=== PATIENT | female | born 1960 | race Caucasian/White ===

== ENCOUNTER → 2017-01-31 | Outpatient (CLI) | payer OTHER ==
[~2017-01-31] MED LIST: BUSP15TA PO; CILO100T PO; DIPH25CA PO; GABA300C5 PO; HYDR50CA PO; IBUP400T20 PO; KETO60IN6 IM; LIPI10TA PO; LIPI20TA PO; LISI-515 PO; LITH300C2 PO; METH125I2 IM; PERM5CRE TOPICAL; ROBA750T PO; SERT-129 PO; TRAZ100T4 PO; TRAZ100T6 PO
[2017-01-31 11:48] LABS: ALKALINE PHOSPHATASE 118 U/L (45-117); ALT (GPT) 33 U/L (10-53); ANION GAP 6 MEQ/L (5-15); AST (GOT) 29 U/L (15-37); BICARBONATE 27.6 MEQ/L (21.0-32.0); BLOOD UREA NITROGEN 13 MG/DL (7-18); CHLORIDE 107 MEQ/L (98-107); GLOMERULAR FILTRATION RATE 70 ML/MIN (>89); GLUCOSE,FASTING 97 MG/DL (74-99); HDL CHOLESTEROL 61.1 MG/DL (40.0-60.0); LDL CHOLESTEROL 124 MG/DL (0-99); POTASSIUM 4.9 MEQ/L (3.5-5.1); SODIUM (NA) 141 MEQ/L (136-145); TOTAL BILIRUBIN ADULT 0.5 MG/DL (0.2-1.0)
== END ==
LOC: CLAB 10:54
PROVIDERS: ATTEND Physician Assistant Medical
DX: E78.2 Mixed hyperlipidemia (principal)
CPT/HCPCS: 36415; 80053; 80061

== ENCOUNTER → 2017-03-22 | Outpatient (CLI) | payer OTHER ==
[~2017-03-22] MED LIST changes: -IBUP400T20 PO; -LIPI10TA PO; -LITH300C2 PO
[2017-03-22 12:04] LABS: AUTOMATED NEUTROPHIL # 4.1 TH/MM3 (1.8-7.7); BASOPHIL # 0.1 TH/MM3 (0-0.2); EOSINOPHIL # 0.1 TH/MM3 (0-0.4); EOSINOPHIL % 2.1 % (0.0-4.0); HEMATOCRIT 42.2 % (35.0-46.0); HEMO FLAGS DIFF FINAL; LYMPH % 23.1 % (9.0-44.0); LYMPHOCYTE # 1.4 TH/MM3 (1.0-4.8); MEAN CELL VOLUME 89.2 FL (80.0-100.0); MEAN CORPUSCULAR HEMOGLOBIN 30.4 PG (27.0-34.0); MEAN CORPUSCULAR HGB CONC 34.1 % (32.0-36.0); MONO % 8.3 % (0.0-8.0); NEUT % 65.5 % (16.0-70.0); PLATELET COUNT 168 TH/MM3 (150-450); RED BLOOD COUNT 4.73 MIL/MM3 (4.00-5.30); RED CELL DISTRIBUTION WIDTH 14.2 % (11.6-17.2); WHITE BLOOD COUNT 6.2 TH/MM3 (4.0-11.0)
== END ==
LOC: CLAB 11:39
PROVIDERS: ATTEND Family Medicine
DX: B18.2 Chronic viral hepatitis C (principal)
CPT/HCPCS: 36415; 85025

== ENCOUNTER → 2017-04-26 | Outpatient (CLI) | payer OTHER ==
[~2017-04-26] MED LIST changes: -GABA300C5 PO; -HYDR50CA PO; -KETO60IN6 IM; -METH125I2 IM
[2017-04-26 14:34] LABS: BICARBONATE 27.7 MEQ/L (21.0-32.0); POTASSIUM 4.8 MEQ/L (3.5-5.1)
== END ==
LOC: CLAB 13:32
PROVIDERS: ATTEND Nurse Practitioner Family
DX: R68.89 Other general symptoms and signs (principal)
CPT/HCPCS: 36415; 80069

== ENCOUNTER → 2017-05-06 | Outpatient (CLI) | payer OTHER | LOC: HRAD 12:05 | PROVIDERS: ATTEND Family Medicine | DX: R68.89 Other general symptoms and signs (principal) ==

== ENCOUNTER → 2017-05-08 | Outpatient (CLI) | payer OTHER ==
[~2017-05-08] MED LIST changes: +IOHEXOL 350 MG/ML 10 ML VIAL (for RAD DIAG) IV ONE
--- NOTE | 2017-05-08 17:09 | RADRPT ---
EXAM DATE/TIME: 05/08/2017 15:40 [facility] COMPARISON: No previous studies available for comparison. INDICATIONS : Evaluate for abnormal ankle brachial index. IV CONTRAST: 69 cc Omnipaque 350 (iohexol) IV RADIATION DOSE: 12.91 CTDIvol (mGy) MEDICAL HISTORY : Hypertension. Hypercholesterolemia. SURGICAL HISTORY : Right femur fracture repair, ankle repair. ENCOUNTER: Initial ACUITY: 1 week PAIN SCALE: 4/10 LOCATION: Bilateral ankle regions. TECHNIQUE: Volumetric scanning was performed using a multi-row detector CT scanner. The data was post processed with a variety of visualization algorithms including full volume maximum intensity projection, multi -planar sliding thin slab reformation, curved planar reformation, and surface rendering techniques. Using automated exposure control and adjustment of the mA and/or kV according to patient size, radiat ion dose was kept as low as reasonably achievable to obtain optimal diagnostic quality images. FINDINGS: Abdominal aorta: The celiac and SMA origins are adequate in caliber. There are single renal arteries bilaterally. The renal arteries are widely patent. The infrarenal aorta is adequate in caliber. The SONNY is patent. Pelvis: The common iliac, internal iliac and external iliac circulation is diseased but widely patent through out its course. Right leg: The common femoral and profunda femoral are patent. The superficial femoral is occluded at its origin . There is eventual reconstitution of the above-knee popliteal. Distally, all 3 trifurcation vessels are patent. Left leg: The left common femoral and profunda femoral are patent. The superficial femoral is occluded at its o rigin. There is eventual reconstitution of the distal superficial femoral below the adductor hiatus. The popliteal is widely patent. All 3 trifurcation vessels are patent down into the foot. CT source data: The solid organs of the abdomen are grossly intact. There is no retroperitoneal adenopathy. No free a ir or free fluid is present. The visualized portion of lung bases clear. CONCLUSION: 1. Adequate inflow down to the level of groin bilaterally. 2. 3. Right le. Complete occlusion of the superficial femoral with reconstitution of the popliteal. Distally, the trifurcation vessels are patent. 5. 6. Left le. Complete occlusion of the superficial femoral proximally with reconstitution of the superficial fe moral below the adductor hiatus. Distally, the trifurcation vessels are patent. Aki Causey MD on May 08, 2017 at 17:03 Board Certified Radiologist. This report was verified electronically.
== END ==
LOC: HRAD 13:17
PROVIDERS: ATTEND Family Medicine
DX: R68.89 Other general symptoms and signs (principal)
CPT/HCPCS: 75635; Q9967

== ENCOUNTER 2017-05-20 13:17 | Emergency (ER) | payer OTHER ==
[~2017-05-20] VITALS: Ht 165.1 cm; Wt 72.0 kg
[~2017-05-20 13:17] MED LIST changes: -DIPH25CA PO; -IOHEXOL 350 MG/ML 10 ML VIAL (for RAD DIAG) IV ONE; -PERM5CRE TOPICAL; -TRAZ100T4 PO
[2017-05-20 13:18] VITALS: BP 229/105; PULSE 88; RESP 20; TEMP 98.3; O2SAT 97
--- NOTE | 2017-05-20 14:28 | PD ---
Physical Exam Time Seen by Provider: 14:27 Narrative 56yo F wants to be checked for scabies. C/o generalized itchy rash x 2 days. Moi fever, vomiting. Patient seen in triage. Awaiting bed placement. VS reviewed. Data Data Last Documented VS Vital Signs Date Time Temp Pulse Resp B/P Pulse Ox O2 Delivery O2 Flow Rate FiO2 05/20/17 13:18 98.3 88 20 229/105 97 Room Air MDM Supervised Visit with JAH: Rose George May 20, 2017 14:28
[2017-05-20 15:58] VITALS: BP 181/106; PULSE 66; RESP 17; TEMP 98.1; O2SAT 100
[2017-05-20] MEDS ORDERED: PERM5CRE TOPICAL (16:14)
--- NOTE | 2017-05-20 16:16 | PD ---
HPI Chief Complaint: Skin Problem Time Seen by Provider: 16:16 Travel History International Travel<30 days: No Contact w/Intl Traveler<30days: No Traveled to known affect area: No History of Present Illness HPI 56-year-old female presents the emergency Department with generalized itchy rash since rescuing a kitten 3 days ago. Past away but the patient has now has worsening generalized itchy rash to the trunk which is spreading and "driving her crazy". Patient denies fever, chills, or other symptoms. Patient has no pain. She is allergic to morphine. PFSH Past Medical History Hx Anticoagulant Therapy: No Autoimmune Disease: No Blood Disorders: No Bipolar Disorder: Yes Anxiety: Yes Depression: Yes Heart Rhythm Problems: No Cancer: No Cardiac Catheterization: No Cardiovascular Problems: Yes (HTN) High Cholesterol: No Chemotherapy: No Chest Pain: No Congestive Heart Failure: No Cerebrovascular Accident: No Diabetes: No Diminished Hearing: No Genitourinary: No Hepatitis: Yes (hep c) Hypertension: Yes Musculoskeletal: Yes Psychiatric: Yes Reproductive: No Respiratory: No Myocardial Infarction: No Menopausal: Yes : 2 Para: 2 Miscarriage: 0 : 0 Ovarian Cysts: Yes (LEFT CYST REMMOVED) Past Surgical History Abdominal Surgery: No Appendectomy: Yes Section: Yes Coronary Artery Bypass Graft: No Gynecologic Surgery: Yes (C SECTION) Hysterectomy: No Pacemaker: No Tonsillectomy: Yes Other Surgery: Yes (mult. skin grafts.) Social History Alcohol Use: No Tobacco Use: Yes Substance Use: No Allergies-Medications (Allergen,Severity, Reaction): Coded Allergies: Morphine (Verified Allergy, Severe, Respiratory Failure, 05/20/17) Reported Meds & Prescriptions Reported Meds & Active Scripts Active Diphenhydramine (Diphenhydramine HCl) 25 Mg Cap 25 Mg PO Q6H PRN Permethrin Topical 5% (Permethrin) 5% Cream 1 Applic TOPICAL ONCE Cilostazol 100 Mg Tab 100 Mg PO BID Robaxin (Methocarbamol) 750 Mg Tab 750 Mg PO QID Lipitor (Atorvastatin Calcium) 20 Mg Tab 20 Mg PO HS Lisinopril 20 Mg Tab 20 Mg PO DAILY Reported Trazodone (Trazodone HCl) 100 Mg Tablet 100 Mg PO BID Buspirone (Buspirone HCl) 15 Mg Tab 15 Mg PO TID Sertraline (Sertraline HCl) 100 Mg Tab 100 Mg PO DAILY Review of Systems Except as stated in HPI: all other systems reviewed are Neg General / Constitutional: No: Fever, Chills Eyes: No: Visual changes HENT: No: Headaches Cardiovascular: No: Chest Pain or Discomfort Respiratory: No: Shortness of Breath Gastrointestinal: No: Abdominal Pain Genitourinary: No: Dysuria Musculoskeletal: No: Pain Skin: Positive Rash, Positive Itching Neurologic: No: Weakness Psychiatric: No: Depression Endocrine: No: Polydipsia Hematologic/Lymphatic: No: Easy Bruising Physical Exam Narrative GENERAL: Patient appears in mild distress. SKIN: Warm and dry. Patient has generalized erythematous rash consistent with scabies to the trunk and upper extremities EYES: Pupils equal and round. No scleral icterus. No injection or drainage. ENT: No nasal bleeding or discharge. Mucous membranes pink and moist. Pharynx is clear. Airway is patent. NECK: Trachea midline. Supple and nontender. CARDIOVASCULAR: Regular rate and rhythm. RESPIRATORY: No accessory muscle use. Clear to auscultation. Breath sounds equal bilaterally. GASTROINTESTINAL: Abdomen soft, non-tender, nondistended. Hepatic and splenic margins not palpable. MUSCULOSKELETAL: Extremities without clubbing, cyanosis, or edema. No obvious deformities. NEUROLOGICAL: Awake and alert. No obvious cranial nerve deficits. Motor grossly within normal limits. Five out of 5 muscle strength in the arms and legs. Normal speech. PSYCHIATRIC: Appropriate mood and affect; insight and judgment normal. Data Data Last Documented VS Vital Signs Date Time Temp Pulse Resp B/P Pulse Ox O2 Delivery O2 Flow Rate FiO2 05/20/17 15:58 98.1 66 17 181/106 100 Room Air Orders Hydroxyzine Hcl (Atarax) (05/20/17 16:30) [facility] Medical Decision Making Medical Screen Exam Complete: Yes Emergency Medical Condition: Yes Differential Diagnosis Rash. Lice. Scabies. Narrative Course Patient is stable at time of exam. Patient is given Atarax 25 mg by mouth now. Patient will be treated with permethrin lotion 5% as directed. 1 refill given. Instructions on cleaning the sheets and urinalysis are given as well. Patient is to follow up if symptoms persist or worsen as discussed. Diagnosis Primary Impression: Scabies infestation Patient Instructions: General Instructions Additional Instructions: Patient is given Atarax 25 mg by mouth now. Patient will be treated with permethrin lotion 5% as directed. 1 refill given. Instructions on cleaning the sheets and urinalysis are given as well. Patient is to follow up if symptoms persist or worsen as discussed. Med/Other Pt SpecificInfo: Prescription(s) given Scripts Diphenhydramine 25 Mg Cap25 Mg PO Q6H PRN (ALLERGIES) #30 CAP Ref 0 Prov:Larisa Hamilton MD 05/20/17 Permethrin Topical 5% 5% Cream1 Applic TOPICAL ONCE #1 TUBE Ref 1 Prov:Larisa Hamilton MD 05/20/17 Disposition: 01 DISCHARGE HOME Condition: Stable Alfred Lezama May 20, 2017 16:16
[2017-05-20] MEDS ORDERED: DIPH25CA PO (16:20)
[2017-05-20] MEDS ORDERED: hydrOXYzine HCL 25 MG TAB PO ONE (16:30)
== END 2017-05-20 16:27 | disposition home or self-care (01) ==
LOC: NEPD 13:17
DX: B86 Scabies (principal); I10 Essential (primary) hypertension; F31.9 Bipolar disorder, unspecified; K75.9 Inflammatory liver disease, unspecified; B19.20 Unspecified viral hepatitis C without hepatic coma; F41.9 Anxiety disorder, unspecified; Z72.0 Tobacco use; Z79.899 Other long term (current) drug therapy; Z88.5 Allergy status to narcotic agent
CPT/HCPCS: 99284

== ENCOUNTER 2017-08-10 18:16 | Observation (INO) | payer OTHER ==
[~2017-08-10 18:16] MED LIST changes: +DIPH25CA PO
[2017-08-10 18:19] VITALS: BP_DIAS 74; PULSE 105; RESP 18; TEMP 97.9; O2SAT 97
[2017-08-10] MEDS ORDERED: SODIUM CHLOR 0.9% 1000 ML INJ 1,000 ML IV SCH ×2 (18:28→22:38)
[2017-08-10] MEDS ORDERED: HYDROmorphone HCL PF 1 MG/ML VIAL IVS ONE (18:30)
[2017-08-10] MEDS ORDERED: SODIUM CHLORIDE 0.9% FLUSH 10 ML FLUSH IV FLUSH PRN ×2 (18:30→22:45)
[2017-08-10] MEDS ORDERED: ONDANSETRON HCL 4 MG/2 ML VIAL IVP ONE (18:30)
--- NOTE | 2017-08-10 18:33 | PD ---
HPI Chief Complaint: Pain: Acute or Chronic Time Seen by Provider: 18:32 Travel History International Travel<30 days: No Contact w/Intl Traveler<30days: No Traveled to known affect area: No History of Present Illness HPI 57-year-old female presents to the emergency department for evaluation of left lower abdominal/left groin pain. She states the pain is worse with movement of her left leg and she feels numbness in her left leg as well. Patient reports history of PVD, hyperlipidemia, anxiety, hypertension, depression. Patient states she has not had this pain before. The pain started approximately 45 minutes prior to arrival. Patient does report history of recent the past, but states it does not feel similar. She also reports history of ovarian cyst. She states she may run a fever earlier today. No chest pain. No nausea, vomiting, diarrhea. No blood in her stool. She reports history of section. She denies any chance of . PFSH Past Medical History Hx Anticoagulant Therapy: No Autoimmune Disease: No Blood Disorders: No Bipolar Disorder: Yes Anxiety: Yes Depression: Yes Heart Rhythm Problems: No Cancer: No Cardiac Catheterization: No Cardiovascular Problems: Yes (HTN) High Cholesterol: No Chemotherapy: No Chest Pain: No Congestive Heart Failure: No Cerebrovascular Accident: No Diabetes: No Diminished Hearing: No Genitourinary: No Headaches: Yes Hepatitis: Yes (hep c) Hypertension: Yes Musculoskeletal: Yes Psychiatric: Yes Reproductive: No Respiratory: No Myocardial Infarction: No Menopausal: Yes : 2 Para: 2 Miscarriage: 0 : 0 Ovarian Cysts: Yes (LEFT CYST REMMOVED) Past Surgical History Abdominal Surgery: No Appendectomy: Yes Section: Yes Coronary Artery Bypass Graft: No Gynecologic Surgery: Yes (C SECTION) Hysterectomy: No Pacemaker: No Tonsillectomy: Yes Other Surgery: Yes (mult. skin grafts.) Social History Alcohol Use: No Tobacco Use: Yes Substance Use: No Allergies-Medications (Allergen,Severity, Reaction): Coded Allergies: morphine (Unverified Allergy, Severe, Respiratory Failure, 07/09/17) Reported Meds & Prescriptions Reported Meds & Active Scripts Active Diphenhydramine (Diphenhydramine HCl) 25 Mg Cap 25 Mg PO Q6H PRN Cilostazol 100 Mg Tab 100 Mg PO BID Robaxin (Methocarbamol) 750 Mg Tab 750 Mg PO QID Lipitor (Atorvastatin Calcium) 20 Mg Tab 20 Mg PO HS Lisinopril 20 Mg Tab 20 Mg PO DAILY Reported Vistaril (Hydroxyzine Pamoate) 25 Mg Cap 25 Mg PO QID PRN Sertraline (Sertraline HCl) 100 Mg Tab 200 Mg PO DAILY Review of Systems Except as stated in HPI: all other systems reviewed are Neg Physical Exam Narrative GENERAL: Well-nourished, well-developed female patient, afebrile. SKIN: Focused skin assessment warm/dry. HEAD: Normocephalic. Atraumatic. EYES: No scleral icterus. No injection or drainage. NECK: Supple, trachea midline. No JVD or lymphadenopathy. CARDIOVASCULAR: Regular rate and rhythm without murmurs, gallops, or rubs. Bilateral pedal pulses 1+. RESPIRATORY: Breath sounds equal bilaterally. No accessory muscle use. Lungs sounds are clear to auscultation. GASTROINTESTINAL: Abdomen soft and nondistended. Patient has tenderness over left groin/left lower quadrant. Pain is better with the left leg flexed. MUSCULOSKELETAL: No cyanosis, or edema. BACK: Nontender without obvious deformity. No CVA tenderness. Data Data Last Documented VS Vital Signs Date Time Temp Pulse Resp B/P (MAP) Pulse Ox O2 Delivery O2 Flow Rate FiO2 08/10/17 22:00 79 22 176/88 (117) 95 08/10/17 18:19 97.9 Orders Orders Complete Blood Count With Diff (08/10/17 18:28) Comprehensive Metabolic Panel (08/10/17 18:28) Lipase (08/10/17 18:28) Prothrombin Time / Inr (Pt) (08/10/17 18:28) Act Partial Throm Time (Ptt) (08/10/17 18:28) Urinalysis - C+S If Indicated (08/10/17 18:28) Iv Access Insert/Monitor (08/10/17 18:28) Ecg Monitoring (08/10/17 18:28) Oximetry (08/10/17 18:28) Ondansetron Inj (Zofran Inj) (08/10/17 18:30) Sodium Chlor 0.9% 1000 Ml Inj (Ns 1000 M (08/10/17 18:28) Sodium Chloride 0.9% Flush (Ns Flush) (08/10/17 18:30) Hydromorphone Pf Inj (Dilaudid Pf Inj) (08/10/17 18:30) Us Pelvis Comp W Transvaginal (08/10/17 ) Ct Abd/Pel W/O Iv Contrast (08/10/17 ) Ketorolac Inj (Toradol Inj) (08/10/17 20:30) Cath For Specimen (08/10/17 20:19) Ct Abd/Pel W Iv Contrast(Rout) (08/10/17 ) Ct Lumb Spine W/O Contrast (08/10/17 ) Hydromorphone Pf Inj (Dilaudid Pf Inj) (08/10/17 21:15) Lactic Acid Sepsis Protocol (08/10/17 21:19) Iohexol 350 Inj (Omnipaque 350 Inj) (08/10/17 21:59) Admit Order (Ed Use Only) (08/10/17 22:32) Labs Laboratory Tests Test 08/10/17 18:40 08/10/17 20:20 08/10/17 21:45 White Blood Count 10.2 TH/MM3 Red Blood Count 4.45 MIL/MM3 Hemoglobin 13.4 GM/DL Hematocrit 39.6 % Mean Corpuscular Volume 89.0 FL Mean Corpuscular Hemoglobin 30.2 PG Mean Corpuscular Hemoglobin Concent 34.0 % Red Cell Distribution Width 13.2 % Platelet Count 201 TH/MM3 Mean Platelet Volume 9.5 FL Neutrophils (%) (Auto) 71.7 % Lymphocytes (%) (Auto) 21.5 % Monocytes (%) (Auto) 5.3 % Eosinophils (%) (Auto) 0.9 % Basophils (%) (Auto) 0.6 % Neutrophils # (Auto) 7.3 TH/MM3 Lymphocytes # (Auto) 2.2 TH/MM3 Monocytes # (Auto) 0.5 TH/MM3 Eosinophils # (Auto) 0.1 TH/MM3 Basophils # (Auto) 0.1 TH/MM3 CBC Comment DIFF FINAL Differential Comment Prothrombin Time 10.1 SEC Prothromb Time International Ratio 0.9 RATIO Activated Partial Thromboplast Time 24.1 SEC Blood Urea Nitrogen 12 MG/DL Creatinine 0.89 MG/DL Random Glucose 107 MG/DL Total Protein 7.5 GM/DL Albumin 3.8 GM/DL Calcium Level 9.3 MG/DL Alkaline Phosphatase 116 U/L Aspartate Amino Transf (AST/SGOT) 25 U/L Alanine Aminotransferase (ALT/SGPT) 29 U/L Total Bilirubin 0.4 MG/DL Sodium Level 140 MEQ/L Potassium Level 3.8 MEQ/L Chloride Level 107 MEQ/L Carbon Dioxide Level 23.0 MEQ/L Anion Gap 10 MEQ/L Estimat Glomerular Filtration Rate 66 ML/MIN Lipase 180 U/L Urine Color LIGHT-YELLOW Urine Turbidity CLEAR Urine pH 7.0 Urine Specific [place] 1.008 Urine Protein NEG mg/dL Urine Glucose (UA) NEG mg/dL Urine Ketones NEG mg/dL Urine Occult Blood NEG Urine Nitrite NEG Urine Bilirubin NEG Urine Urobilinogen LESS THAN 2.0 MG/DL Urine Leukocyte Esterase NEG Urine RBC LESS THAN 1 /hpf Urine WBC LESS THAN 1 /hpf Microscopic Urinalysis Comment CATH-CULT NOT IND Lactic Acid Level 0.8 mmol/L MDM Medical Decision Making Medical Screen Exam Complete: Yes Emergency Medical Condition: Yes Medical Record Reviewed: Yes Interpretation(s) Last Impressions Pelvis Ultrasound 08/10/17 0000 Signed Impressions: Service Date/Time: Thursday, August 10, 2017 18:37 - CONCLUSION: Limited study but without evidence of an acute abnormality. Musa Campbell MD Abdomen/Pelvis CT 08/10/17 0000 Signed Impressions: Service Date/Time: Thursday, August 10, 2017 19:38 - CONCLUSION: 1. No obstruction or acute inflammatory changes of the abdomen or pelvis. 2. Mild sigmoid colon diverticulosis without diverticulitis. 3. Atherosclerosis of the abdominal aorta. Musa Campbell MD CT abdomen/pelvis with IV contrast - CONCLUSION: No acute abnormality or interim change. Mild sigmoid colon diverticulosis without diverticulitis. CT lumbar spine - CONCLUSION: 1. Multilevel abnormalities as detailed above, mostly appearing chronic. Age- indeterminate left foraminal disc protrusions and/or extrusions are seen at L3/ L4 and L4/L5, probably impinging on the exiting left L3 and L4 nerve roots, respectively. There may also be impingement on the transiting left L5 nerve root at L4/L5. 2. Mild levoconvex curvature centered around L4. No fracture or subluxation of the lumbar spine. Differential Diagnosis Nephrolithiasis versus tubo-ovarian torsion versus UTI versus pyelonephritis versus diverticulitis versus ovarian cyst Narrative Course 57 year old female presents to the emergency department for evaluation of left lower quadrant/left groin pain that started suddenly approximate 45 minutes ago. She denies any heavy lifting. Patient does have history of PVD, but bilateral pedal pulses are palpable with no change in temperature. CBC, CMP, lipase, PTT, PT/INR, UA are ordered and pending. Pelvic ultrasound is ordered and pending. CT abdomen/pelvis without contrast is ordered and pending. Patient is given Dilaudid 0.5 mg IV, normal saline liter IV bolus, Zofran 4 mg IV. CBC shows no acute abnormality. CMP shows no acute abnormality. Lipase is 180. Coags show no acute abnormality. UA is negative. Pelvic ultrasound shows a limited study, but without evidence of an acute abnormality. CT abdomen /pelvis shows no obstruction or acute inflammatory changes of the abdomen or pelvis, mild sigmoid diverticulosis without diverticulitis, atherosclerosis of the abdominal aorta. Upon reexamination, patient still very uncomfortable. My attending physician, Dr. Shen, also examined patient. She recommends lactic acid, CT abdomen/pelvis with IV contrast and CT lumbar spine. Orders are placed. Patient is given Toradol 30 mg IV, Dilaudid 0.[address] abdomen/pelvis with IV contrast shows No acute abnormality or interim change. Mild sigmoid colon diverticulosis without diverticulitis. CT lumbar spine shows multilevel abnormalities as detailed above, mostly appearing chronic. Age-indeterminate left foraminal disc protrusions and/or extrusions are seen at L3/L4 and L4/L5, probably impinging on the exiting left L3 and L4 nerve roots, respectively. There may also be impingement on the transiting left L5 nerve root at L4/L5; Mild levoconvex curvature centered around L4. No fracture or subluxation of the lumbar spine. Lactic acid is 0.8. [facility] is paged for admission. Dr. Galo accepted admission. Diagnosis Primary Impression: Intractable abdominal pain Admitting Information Admitting Physician Requests: Marci Cline Aug 10, 2017 18:33
[2017-08-10] MEDS ORDERED: VIST25CA PO (18:52)
[2017-08-10 19:07] LABS: AUTOMATED NEUTROPHIL # 7.3 TH/MM3 (1.8-7.7); BASOPHIL # 0.1 TH/MM3 (0-0.2); BASOPHIL % 0.6 % (0.0-2.0); EOSINOPHIL # 0.1 TH/MM3 (0-0.4); EOSINOPHIL % 0.9 % (0.0-4.0); HEMATOCRIT 39.6 % (35.0-46.0); HEMO FLAGS DIFF FINAL; LYMPH % 21.5 % (9.0-44.0); LYMPHOCYTE # 2.2 TH/MM3 (1.0-4.8); MEAN CORPUSCULAR HEMOGLOBIN 30.2 PG (27.0-34.0); MONO % 5.3 % (0.0-8.0); NEUT % 71.7 % (16.0-70.0); PLATELET COUNT 201 TH/MM3 (150-450); RED BLOOD COUNT 4.45 MIL/MM3 (4.00-5.30); RED CELL DISTRIBUTION WIDTH 13.2 % (11.6-17.2); WHITE BLOOD COUNT 10.2 TH/MM3 (4.0-11.0)
[2017-08-10 19:15] LABS: ANION GAP 10 MEQ/L (5-15); APTT (PATIENT) 24.1 SEC (24.3-30.1); AST (GOT) 25 U/L (15-37); BLOOD UREA NITROGEN 12 MG/DL (7-18); CHLORIDE 107 MEQ/L (98-107); GLOMERULAR FILTRATION RATE 66 ML/MIN (>89); INTERNATIONAL NORMALIZED RATIO 0.9 RATIO; POTASSIUM 3.8 MEQ/L (3.5-5.1); PROTHROMBIN TIME - PATIENT 10.1 SEC (9.8-11.6); SODIUM (NA) 140 MEQ/L (136-145)
[2017-08-10 19:19] LABS: ALKALINE PHOSPHATASE 116 U/L (45-117); ALT (GPT) 29 U/L (10-53); TOTAL BILIRUBIN ADULT 0.4 MG/DL (0.2-1.0)
--- NOTE | 2017-08-10 19:19 | RADRPT ---
EXAM DATE/TIME: 08/10/2017 18:37 [facility] COMPARISON: No previous studies available for comparison. INDICATIONS : Pelvic pain. MEDICAL HISTORY : Gastroesophageal reflux disease. Hypertension. Ovarian cysts. Anxiety. Depression. Hepatitis C. SURGICAL HISTORY : Tonsillectomy. Appendectomy. section. Right leg reconstructive surgery. Multiple skin graft s. ENCOUNTER: Initial ACUITY: 1 day PAIN SCORE: 10/10 LOCATION: Bilateral pelvis MEASUREMENTS: TRANSABDOMINAL: UTERUS: 6.1 x 3.7 x 2.6 cm RIGHT OVARY: Non visualized LEFT OVARY: Non visualized FINDINGS: UTERUS: The myometrium has homogeneous echotexture without mass. RIGHT OVARY: Not well seen. No evidence of an adnexal mass. LEFT OVARY: Not well seen. No evidence of an adnexal mass. MISCELLANEOUS: No free fluid. CONCLUSION: Limited study but without evidence of an acute abnormality. Musa Campbell MD on August 10, 2017 at 19:16 Board Certified Radiologist. This report was verified electronically.
[2017-08-10 20:00] VITALS: BP 206/95; PULSE 76; RESP 20; O2SAT 95
--- NOTE | 2017-08-10 20:07 | RADRPT ---
EXAM DATE/TIME: 08/10/2017 19:38 [facility] COMPARISON: CTA RUNOFF W 3D RECON, May 08, 2017, 15:40. INDICATIONS : Left lower abdominal pain. ORAL CONTRAST: No oral contrast ingested. RADIATION DOSE: 9.96 CTDIvol (mGy) MEDICAL HISTORY : Cardiovascular disease. Gastroesophageal reflux disease. Hepatitis C.Hypertension SURGICAL HISTORY : Appendectomy. Right hip surgery. ENCOUNTER: Initial ACUITY: 1 day PAIN SCALE: 7/10 LOCATION: Left lower quadrant abdomen TECHNIQUE: Volumetric scanning of the abdomen and pelvis was performed. Using automated exposure control and ad justment of the mA and/or kV according to patient size, radiation dose was kept as low as reasonably achievable to obtain optimal diagnostic quality images. DICOM format image data is available electro nically for review and comparison. FINDINGS: LOWER LUNGS: Trace scarring left lung base and unchanged benign pleural calcification of the right lung base. LIVER: Homogeneous density without lesion. There is no dilation of the biliary tree. No calcified gallston es. SPLEEN: Normal size without lesion. PANCREAS: Within normal limits. KIDNEYS: 2 nonobstructing stone right upper pole. Otherwise normal noncontrast appearance of both kidneys. ADRENAL GLANDS: Within normal limits. VASCULAR: There is atherosclerosis of the abdominal aorta and iliac arteries. No aneurysm. BOWEL/MESENTERY: Mild diverticulosis of the sigmoid colon but without perceptible acute inflammatory changes. No obstr uction. No free air or free fluid. ABDOMINAL WALL: Within normal limits. RETROPERITONEUM: There is no lymphadenopathy. BLADDER: No wall thickening or mass. REPRODUCTIVE: Within normal limits. INGUINAL: There is no lymphadenopathy or hernia. MUSCULOSKELETAL: No acute bony abnormality demonstrated. CONCLUSION: 1. No obstruction or acute inflammatory changes of the abdomen or pelvis. 2. Mild sigmoid colon diverticulosis without diverticulitis. 3. Atherosclerosis of the abdominal aorta. Musa Campbell MD on August 10, 2017 at 20:03 Board Certified Radiologist. This report was verified electronically.
[2017-08-10] MEDS ORDERED: KETOROLAC TROMETHAMINE 30 MG/ML (IVP) VIAL IV PUSH ONE (20:30)
[2017-08-10 21:00] VITALS: BP 169/92; PULSE 73; RESP 20; O2SAT 96
[2017-08-10] MEDS ORDERED: HYDROmorphone HCL PF 1 MG/ML VIAL IV PUSH ONE (21:15)
[2017-08-10 21:16] LABS: BLOOD, URINE NEG (NEG); GLUCOSE,URINE NEG (NEG); KETONE, URINE NEG (NEG); NITRITE,URINE NEG (NEG); URINE COLOR LIGHT-YELLOW (YELLW/STRAW)
[2017-08-10 21:17] LABS: COMMENT (UR) CATH-CULT NOT IND; CULTURE IF INDICATED CATH CULTURE NOT IND
[2017-08-10] MEDS ORDERED: IOHEXOL 350 MG/ML 10 ML VIAL (for RAD DIAG) IVCONTRAST ONE (21:59)
[2017-08-10 22:00] VITALS: BP 176/88; PULSE 79; RESP 22; O2SAT 95
--- NOTE | 2017-08-10 22:08 | RADRPT ---
EXAM DATE/TIME: 08/10/2017 19:39 [facility] COMPARISON: CT LUMBAR SPINE W/O CONTRAST W 3D RECON, November 12, 2012, 19:22. INDICATIONS : Lower back pain. RADIATION DOSE: CTDIvol (mGy) ; Reconstructed from previous dataset, no dose MEDICAL HISTORY : Hepatitis C. Hypertension. Gastroesophageal reflux disease. SURGICAL HISTORY : Appendectomy. section. ENCOUNTER: Initial ACUITY: 1 day PAIN SCALE: 7/10 LOCATION: Bilateral lower back TECHNIQUE: Volumetric scanning of the lumbar spine was performed. Multiplanar reconstructions in the sagittal, coronal and oblique axial planes were performed. Using automated exposure control and adjustment of the mA and/or kV according to patient size, radiation dose was kept as low as reasonably achievable t o obtain optimal diagnostic quality images. DICOM format image data is available electronically for review and comparison. FINDINGS: VERTEBRAE: Normal vertebral body height. ALIGNMENT: No evidence of subluxation. T12-L1: Mild left lateral disc osteophyte complex formation. There is mild bilateral facet osteoarthritis. No significant foraminal or spinal stenosis. L1-L2: Disc height within normal limits. There is [id number] bilateral facet osteoarthritis. No forami nal or spinal stenosis. L2-L3: There is slight bulging of the disc annulus and mild to moderate bilateral facet osteoarthritis. No f oraminal or spinal stenosis. L3-L4: The disc has mild loss of height. There is a small, broad/diffuse disc protrusion and moderate bilate ral facet osteoarthritis. A superimposed extruded disc fragment is seen in the left foramen, series 3 07 image 57. There is mild spinal stenosis and mild right, moderate or severe left foraminal stenosis . L4-L5: The disc as mild loss of height. A small moderate, broad/diffuse and partly calcified disc protrusion is present and there is moderate bilateral facet osteoarthritis with thickening of the ligamentum fl avum. I believe there is a superimposed more focal disc protrusion in the left foramen. There is left lateral recess encroachment and mild right, moderate left foraminal stenosis. L5-S1: Disc height within normal limits. There is mild, diffuse bulging of the disc annulus and mild to mode rate right foraminal stenosis. Apparent previous right hemilaminotomy. No significant foraminal or sp inal stenosis demonstrated at this level. CONCLUSION: 1. Multilevel abnormalities as detailed above, mostly appearing chronic. Age-indeterminate left molly inal disc protrusions and/or extrusions are seen at L3/L4 and L4/L5, probably impinging on the exitin g left L3 and L4 nerve roots, respectively. There may also be impingement on the transiting left L5 n erve root at L4/L5. 2. Mild levoconvex curvature centered around L4. No fracture or subluxation of the lumbar spine. Musa Campbell MD on August 10, 2017 at 21:58 Board Certified Radiologist. This report was verified electronically.
--- NOTE | 2017-08-10 22:11 | RADRPT ---
EXAM DATE/TIME: 08/10/2017 21:55 [facility] COMPARISON: CT ABDOMEN & PELVIS W/O CONTRAST, August 10, 2017, 19:38. INDICATIONS : Left lower abdominal pain. IV CONTRAST: 95 cc Omnipaque 350 (iohexol) IV ORAL CONTRAST: No oral contrast ingested. RADIATION DOSE: 8.67 CTDIvol (mGy) MEDICAL HISTORY : Gastroesophageal reflux disease. Hepatitis C. Hypertension. SURGICAL HISTORY : section. Appendectomy. ENCOUNTER: Initial ACUITY: 1 day PAIN SCALE: 7/10 LOCATION: Left lower quadrant TECHNIQUE: Volumetric scanning of the abdomen and pelvis was performed. Using automated exposure control and ad justment of the mA and/or kV according to patient size, radiation dose was kept as low as reasonably achievable to obtain optimal diagnostic quality images. DICOM format image data is available electro nically for review and comparison. FINDINGS: LOWER LUNGS: Trace scarring left lung base and unchanged benign pleural calcification of the right lung base. LIVER: Homogeneous density without lesion. There is no dilation of the biliary tree. No calcified gallston es. SPLEEN: Normal size without lesion. PANCREAS: Within normal limits. KIDNEYS: 2 nonobstructing stone right upper pole. Otherwise normal noncontrast appearance of both kidneys. ADRENAL GLANDS: Within normal limits. VASCULAR: There is atherosclerosis of the abdominal aorta and iliac arteries. No aneurysm. BOWEL/MESENTERY: Mild diverticulosis of the sigmoid colon but without perceptible acute inflammatory changes. No obstr uction. No free air or free fluid. ABDOMINAL WALL: Within normal limits. RETROPERITONEUM: There is no lymphadenopathy. BLADDER: No wall thickening or mass. REPRODUCTIVE: Within normal limits. INGUINAL: There is no lymphadenopathy or hernia. MUSCULOSKELETAL: No acute bony abnormality demonstrated. CONCLUSION: No acute abnormality or interim change. Mild sigmoid colon diverticulosis without diverticulitis. Musa Campbell MD on August 10, 2017 at 22:07 Board Certified Radiologist. This report was verified electronically.
[2017-08-10] MEDS ORDERED: ONDANSETRON HCL 4 MG/2 ML VIAL IVP PRN (22:45)
[2017-08-10] MEDS ORDERED: HYDROmorphone HCL PF 1 MG/ML VIAL IV PUSH PRN (22:45)
[2017-08-10] MEDS ORDERED: methylPREDNISolone SOD SUCC 125 MG/2 ML VIAL IV PUSH ONE (22:45)
[2017-08-10] MEDS ORDERED: LACTULOSE SYRUP 20 GM/30 ML CUP PO PRN (22:45)
[2017-08-10] MEDS ORDERED: GABAPENTIN 300 MG CAP PO ONE (22:45)
[2017-08-10] MEDS ORDERED: BISACODYL 10 MG SUPP RECTAL PRN (22:45)
[2017-08-10] MEDS ORDERED: SENNOSIDES 8.6 MG TAB PO PRN (22:45)
[2017-08-10] MEDS ORDERED: MAGNESIUM HYDROXIDE SUSP 30 ML CUP PO PRN (22:45)
[2017-08-10] MEDS ORDERED: ACETAMINOPHEN 325 MG TAB PO PRN (22:45)
[2017-08-10] MEDS ORDERED: DIAZEPAM 10 MG TAB (23:00)
[2017-08-10] MEDS ORDERED: DIAZEPAM 5 MG TAB PO ONE (23:00)
--- NOTE | 2017-08-10 23:17 | PD ---
Data Data Last Documented VS Vital Signs Date Time Temp Pulse Resp B/P (MAP) Pulse Ox O2 Delivery O2 Flow Rate FiO2 08/10/17 22:00 79 22 176/88 (117) 95 08/10/17 18:19 97.9 Orders Orders Complete Blood Count With Diff (08/10/17 18:28) Comprehensive Metabolic Panel (08/10/17 18:28) Lipase (08/10/17 18:28) Prothrombin Time / Inr (Pt) (08/10/17 18:28) Act Partial Throm Time (Ptt) (08/10/17 18:28) Urinalysis - C+S If Indicated (08/10/17 18:28) Iv Access Insert/Monitor (08/10/17 18:28) Ecg Monitoring (08/10/17 18:) Oximetry (08/10/17 18:28) Ondansetron Inj (Zofran Inj) (08/10/17 18:30) Sodium Chlor 0.9% 1000 Ml Inj (Ns 1000 M (08/10/17 18:28) Sodium Chloride 0.9% Flush (Ns Flush) (08/10/17 18:30) Hydromorphone Pf Inj (Dilaudid Pf Inj) (08/10/17 18:30) Us Pelvis Comp W Transvaginal (08/10/17 ) Ct Abd/Pel W/O Iv Contrast (08/10/17 ) Ketorolac Inj (Toradol Inj) (08/10/17 20:30) Cath For Specimen (08/10/17 20:19) Ct Abd/Pel W Iv Contrast(Rout) (08/10/17 ) Ct Lumb Spine W/O Contrast (08/10/17 ) Hydromorphone Pf Inj (Dilaudid Pf Inj) (08/10/17 21:15) Lactic Acid Sepsis Protocol (08/10/17 21:19) Iohexol 350 Inj (Omnipaque 350 Inj) (08/10/17 21:59) Admit Order (Ed Use Only) (08/10/17 22:32) Labs Laboratory Tests Test 08/10/17 18:40 08/10/17 20:20 08/10/17 21:45 White Blood Count 10.2 TH/MM3 Red Blood Count 4.45 MIL/MM3 Hemoglobin 13.4 GM/DL Hematocrit 39.6 % Mean Corpuscular Volume 89.0 FL Mean Corpuscular Hemoglobin 30.2 PG Mean Corpuscular Hemoglobin Concent 34.0 % Red Cell Distribution Width 13.2 % Platelet Count 201 TH/MM3 Mean Platelet Volume 9.5 FL Neutrophils (%) (Auto) 71.7 % Lymphocytes (%) (Auto) 21.5 % Monocytes (%) (Auto) 5.3 % Eosinophils (%) (Auto) 0.9 % Basophils (%) (Auto) 0.6 % Neutrophils # (Auto) 7.3 TH/MM3 Lymphocytes # (Auto) 2.2 TH/MM3 Monocytes # (Auto) 0.5 TH/MM3 Eosinophils # (Auto) 0.1 TH/MM3 Basophils # (Auto) 0.1 TH/MM3 CBC Comment DIFF FINAL Differential Comment Prothrombin Time 10.1 SEC Prothromb Time International Ratio 0.9 RATIO Activated Partial Thromboplast Time 24.1 SEC Blood Urea Nitrogen 12 MG/DL Creatinine 0.89 MG/DL Random Glucose 107 MG/DL Total Protein 7.5 GM/DL Albumin 3.8 GM/DL Calcium Level 9.3 MG/DL Alkaline Phosphatase 116 U/L Aspartate Amino Transf (AST/SGOT) 25 U/L Alanine Aminotransferase (ALT/SGPT) 29 U/L Total Bilirubin 0.4 MG/DL Sodium Level 140 MEQ/L Potassium Level 3.8 MEQ/L Chloride Level 107 MEQ/L Carbon Dioxide Level 23.0 MEQ/L Anion Gap 10 MEQ/L Estimat Glomerular Filtration Rate 66 ML/MIN Lipase 180 U/L Urine Color LIGHT-YELLOW Urine Turbidity CLEAR Urine pH 7.0 Urine Specific [place] 1.008 Urine Protein NEG mg/dL Urine Glucose (UA) NEG mg/dL Urine Ketones NEG mg/dL Urine Occult Blood NEG Urine Nitrite NEG Urine Bilirubin NEG Urine Urobilinogen LESS THAN 2.0 MG/DL Urine Leukocyte Esterase NEG Urine RBC LESS THAN 1 /hpf Urine WBC LESS THAN 1 /hpf Microscopic Urinalysis Comment CATH-CULT NOT IND Lactic Acid Level 0.8 mmol/L MDM Supervised Visit with JAH: Yes Narrative Course The history, exam, and medical decision-making in the associated midlevel provider note were completed with my assistance. I reviewed and agree with the findings presented. I attest that I had a [id number] encounter with the patient on the same day, and personally performed and documented my assessment and findings in the medical record. *My assessment and Findings: This is a 57-year-old female who presents to the emergency department with sudden onset left sided abdominal and groin pain that radiates to the left back. She is tender to palpation of the left lower quadrant and has a fair amount of pain with movement. She is tearful and uncomfortable. Labs were obtained which were all reassuring. CT imaging was obtained both noncontrast and with contrast. Ultrasound was obtained which was reassuring. I can't find any etiology of her symptoms but she is very very uncomfortable on exam. This may be related to her lumbar spine. I considered mesenteric ischemia but her lactic acid is normal and CT scan is reassuring so I think this is unlikely. I think the patient would benefit from observation and continued pain control and serial exams given this pain is unusual for her. If it's musculoskeletal one would expect she would improve by tomorrow. If not we might consider MR imaging of either the lower back or the abdominal vasculature. Diagnosis Primary Impression: Intractable abdominal pain Joselyn Shen MD Aug 10, 2017 23:17
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
[2017-08-11] VITALS (7 sets, daily range): BP systolic 117–207; BP diastolic 66–97; PULSE 62–105; RESP 16–18; TEMP 97.1–98.7; O2SAT 93–98
[2017-08-11] MEDS ORDERED: DIAZEPAM 5 MG TAB PO PRN ×2 (06:00→09:00)
[2017-08-11] MEDS ORDERED: hydrOXYzine PAMOATE 25 MG CAP PO PRN (07:45)
[2017-08-11] MEDS ORDERED: PILL SPLITTER OTHER PRN (07:45)
[2017-08-11] MEDS ORDERED: PNEUMOCOCCAL POLYVALENT INJ 25 MCG/0.5 ML SYR IM ONE (09:00)
[2017-08-11] MEDS: SODIUM CHLORIDE 0.9% FLUSH 10 ML FLUSH IV FLUSH SCH ×2 (09:00→21:09)
[2017-08-11] MEDS: INFLUENZA VIRUS VACCINE (QUADRIVALENT) 0.5 ML SYR IM ONE ×2 (09:00→12:55)
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
[2017-08-11] MEDS: METHOCARBAMOL 500 MG TAB PO SCH ×2 (09:36→15:16)
[2017-08-11] MEDS: LISINOPRIL 20 MG TAB PO SCH (09:36)
[2017-08-11] MEDS: DOCUSATE SODIUM 50 MG/SENNA 8.6 MG TAB PO SCH ×2 (09:37→21:07)
[2017-08-11] MEDS: SERTRALINE HCL 100 MG TAB PO SCH (09:37)
[2017-08-11] MEDS: predniSONE 20 MG TAB PO SCH ×2 (09:37→21:07)
[2017-08-11] MEDS: CILOSTAZOL 100 MG TAB PO SCH ×2 (09:37→22:50)
[2017-08-11] MEDS: GABAPENTIN 300 MG CAP PO SCH ×3 (09:37→17:36)
[2017-08-11] MEDS: LIDOCAINE HCL 5% PATCH T-DERMAL SCH (09:38)
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
[2017-08-11 11:32] LABS: AUTOMATED NEUTROPHIL # 5.2 TH/MM3 (1.8-7.7); BASOPHIL % 0.3 % (0.0-2.0); HEMATOCRIT 43.2 % (35.0-46.0); HEMO FLAGS DIFF FINAL; LYMPH % 11.5 % (9.0-44.0); LYMPHOCYTE # 0.7 TH/MM3 (1.0-4.8); MEAN CELL VOLUME 90.6 FL (80.0-100.0); MEAN CORPUSCULAR HEMOGLOBIN 29.7 PG (27.0-34.0); MEAN CORPUSCULAR HGB CONC 32.8 % (32.0-36.0); MONO % 1.3 % (0.0-8.0); NEUT % 86.9 % (16.0-70.0); PLATELET COUNT 209 TH/MM3 (150-450); RED BLOOD COUNT 4.76 MIL/MM3 (4.00-5.30); RED CELL DISTRIBUTION WIDTH 13.7 % (11.6-17.2)
[2017-08-11 11:54] LABS: ALT (GPT) 26 U/L (10-53); ANION GAP 7 MEQ/L (5-15); AST (GOT) 20 U/L (15-37); BICARBONATE 25.8 MEQ/L (21.0-32.0); BLOOD UREA NITROGEN 15 MG/DL (7-18); CHLORIDE 105 MEQ/L (98-107); GLOMERULAR FILTRATION RATE 85 ML/MIN (>89); POTASSIUM 4.6 MEQ/L (3.5-5.1); SODIUM (NA) 138 MEQ/L (136-145)
[2017-08-11 11:58] LABS: ALKALINE PHOSPHATASE 120 U/L (45-117); TOTAL BILIRUBIN ADULT 0.3 MG/DL (0.2-1.0)
--- NOTE | 2017-08-11 14:23 | RADRPT ---
EXAM DATE/TIME: 08/11/2017 14:07 [facility] COMPARISON: CT ABDOMEN & PELVIS W/O CONTRAST, August 10, 2017, 19:38. INDICATIONS : Pain from fall in yard. MEDICAL HISTORY : None. SURGICAL HISTORY : None. ENCOUNTER: Initial ACUITY: 4 - 6 days PAIN SCORE: 7/10 LOCATION: Left hip. FINDINGS: Examination of the left hip was performed with AP Pelvis. There is a right femoral intramedullary ro d in place. The primary and secondary trabecular pattern of the femoral neck is intact. The mild deg enerative change about the left hip. The acetabulum is grossly intact. CONCLUSION: 1. No acute fracture or dislocation. Bola Gonzales MD on August 11, 2017 at 14:20 Board Certified Radiologist. This report was verified electronically.
[2017-08-11] MEDS: KETOROLAC TROMETHAMINE 30 MG/ML (IVP) VIAL IV PUSH SCH ×2 (15:16→21:08)
[2017-08-11] MEDS: PANTOPRAZOLE SOD 20 MG DELAYED RELEASE TAB PO SCH (15:16)
[2017-08-11] MEDS ORDERED: ATORVASTATIN 20 MG TAB PO SCH (21:00)
[2017-08-12] MEDS: KETOROLAC TROMETHAMINE 30 MG/ML (IVP) VIAL IV PUSH SCH ×3 (03:16→14:02)
[2017-08-12 06:22] VITALS: BP 121/69; PULSE 65; RESP 16; TEMP 97.2; O2SAT 94
[2017-08-12] MEDS: METHOCARBAMOL 500 MG TAB PO SCH ×2 (08:00)
[2017-08-12 08:10] VITALS: BP 136/74; PULSE 66; RESP 17; TEMP 97.7; O2SAT 93
[2017-08-12] MEDS: PANTOPRAZOLE SOD 20 MG DELAYED RELEASE TAB PO SCH (08:52)
[2017-08-12] MEDS: GABAPENTIN 300 MG CAP PO SCH ×2 (08:52→12:10)
[2017-08-12] MEDS: CILOSTAZOL 100 MG TAB PO SCH (08:52)
[2017-08-12] MEDS: LIDOCAINE HCL 5% PATCH T-DERMAL SCH (08:53)
[2017-08-12] MEDS: LISINOPRIL 20 MG TAB PO SCH (08:53)
[2017-08-12] MEDS: SERTRALINE HCL 100 MG TAB PO SCH (08:53)
[2017-08-12] MEDS: predniSONE 20 MG TAB PO SCH (09:11)
[2017-08-12] MEDS: DOCUSATE SODIUM 50 MG/SENNA 8.6 MG TAB PO SCH (09:12)
[2017-08-12] MEDS: SODIUM CHLORIDE 0.9% FLUSH 10 ML FLUSH IV FLUSH SCH (09:12)
[2017-08-12] MEDS ORDERED: WALKER WHEELS/F1 MIS (11:33)
[2017-08-12 12:03] VITALS: BP 132/69; PULSE 68; RESP 21; TEMP 97.5; O2SAT 92
--- NOTE | 2017-08-12 12:10 | HHI.PR ---
Subjective Remarks Follow-up for left hip pain. The patient continues to complain of pain in her left hip. It is somewhat improved from yesterday. She states the pain is 6-7/ 10. She feels like the medications she's been getting there has been helping the pain, and she would like to continue them upon discharge. She has questions regarding her patient assistance. She does not have a walker currently. She walked some with PT yesterday, awaiting PT again today. Objective Vitals Vital Signs Date Time Temp Pulse Resp B/P (MAP) Pulse Ox O2 Delivery O2 Flow Rate FiO2 08/12/17 08:10 97.7 66 17 136/74 (94) 93 08/12/17 06:22 97.2 65 16 121/69 (86) 94 08/11/17 23:29 98.7 83 18 117/72 (87) 97 08/11/17 22:10 20 08/11/17 19:23 98.4 105 18 140/75 (96) 98 08/11/17 18:30 97.1 95 18 158/66 (96) 94 08/11/17 11:35 98.7 70 16 156/81 (106) 95 I/O 08/11/17 08/11/17 08/11/17 08/12/17 08/12/17 08/12/17 07:00 15:00 23:00 07:00 15:00 23:00 Intake Total 814 ml 1000 ml 700 ml Balance 814 ml 1000 ml 700 ml Intake Oral 720 ml 700 ml IV Total 94 ml 1000 ml # Voids 5 1 Result Diagram: 08/11/1792108/11/17921 Imaging Last Impressions Hip and Pelvis X-Ray 08/11/17 0000 Signed Impressions: Service Date/Time: Friday, August 11, 2017 14:07 - CONCLUSION: 1. No acute fracture or dislocation. Bola Gonzales MD Pelvis Ultrasound 08/10/17 0000 Signed Impressions: Service Date/Time: Thursday, August 10, 2017 18:37 - CONCLUSION: Limited study but without evidence of an acute abnormality. Musa Campbell MD Lumbar Spine CT 08/10/17 0000 Signed Impressions: Service Date/Time: Thursday, August 10, 2017 19:39 - CONCLUSION: 1. Multilevel abnormalities as detailed above, mostly appearing chronic. Age-indeterminate left foraminal disc protrusions and/or extrusions are seen at L3/L4 and L4/L5, probably impinging on the exiting left L3 and L4 nerve roots, respectively. There may also be impingement on the transiting left L5 nerve root at L4/L5. 2. Mild levoconvex curvature centered around L4. No fracture or subluxation of the lumbar spine. Musa Campbell MD Abdomen/Pelvis CT 08/10/17 0000 Signed Impressions: Service Date/Time: Thursday, August 10, 2017 21:55 - CONCLUSION: No acute abnormality or interim change. Mild sigmoid colon diverticulosis without diverticulitis. Musa Campbell MD Objective Remarks GENERAL: Well-developed well-nourished. In no acute distress. SKIN: Warm and dry. No lesions noted. HEENT: Normocephalic. Pupils equal and round. Mucous membranes pink and moist. CARDIOVASCULAR: Regular rate and rhythm. No murmur appreciated. RESPIRATORY: No accessory muscle use. Clear to auscultation. Breath sounds equal bilaterally. GASTROINTESTINAL: Abdomen soft, non-tender, nondistended. Bowel sounds x4. MUSCULOSKELETAL: No obvious deformities. Pain with palpation and movement at the left hip. No clubbing or cyanosis. No edema. NEUROLOGICAL: Awake and alert. No focal neurological deficits. Moves upper and lower extremities spontaneously. Normal speech. PSYCHIATRIC: Appropriate mood and affect; insight and judgment normal. A/P Problem List: (1) Intractable pain ICD Code: R52 - Pain, unspecified Status: Acute (2) HTN (hypertension) ICD Code: I10 - Essential (primary) hypertension Status: Chronic (3) Tobacco abuse ICD Code: Z72.0 - Tobacco use Status: Chronic Assessment and Plan 57-year-old female with a PMH of Anxiety, Depression, Bipolar Disorder, HTN, PVD , Hepatitis C and Tobacco Abuse who presented with acute onset of severe left groin and hip pain Intractable Pain: acute onset of left hip pain w/ radiation to left back, associated radicular pain, no injury/trauma. Pain improved from 09/03-05/04 during admission. Reviewed: CT Abd/Pelvis w/ and w/o contrast unremarkable. Pelvic US negative. CT L-Spine w/ left foraminal disc protrusions probably impinging on left L3 and L4 nerve roots and left L5 nerve root. Hip x-ray unremarkable for acute process. -Consulted NxSx, discussed with Dr. Mukherjee, recommends conservative management with pain control and PT at this time -PT for eval/tx -Continue oxycodone as needed with IV Dilaudid for breakthrough -Continue gabapentin, Lidoderm patch -Steroid taper per neurosurgery -Increase her home Robaxin. -Started IV Toradol, continue OTC NSAIDs for DC'd HTN: Better controlled. Continue home lisinopril. Monitor. Tobacco Abuse: Pt counseling. NicoDerm prn if needed. DVT prophylaxis: SCDs GI prophylaxis: Continue PPI while on steroids and NSAIDs Discharge Planning PT recommends walker, will have case management arranged. Plan for outpatient PT at [address] Likely discharge later today on current pain control regimen. Problem Qualifiers (1) HTN (hypertension): Qualified Codes: I10 - Essential (primary) hypertension Nickolas Sutherland Aug 12, 2017 11:41
[2017-08-12] MEDS ORDERED: NEUR300C PO (15:52)
[2017-08-12] MEDS ORDERED: MEDR4PAK PO (15:52)
[2017-08-12] MEDS ORDERED: METH500T3 PO (15:52)
[2017-08-12] MEDS ORDERED: OXYC-392 PO (15:52)
[2017-08-12] MEDS ORDERED: LIDO5DIS5 T-DERMAL (15:52)
[2017-08-12] MEDS ORDERED: PANT20 PO (15:52)
[2017-08-12] MEDS ORDERED: METHOCARBAMOL 500 MG TAB PO SCH (16:00)
[2017-08-20] MEDS ORDERED: METH750T PO ×2 (14:42→14:52)
[2017-08-20] MEDS ORDERED: PANT20 PO ×2 (14:42→14:52)
[2017-08-20] MEDS ORDERED: KETO60IN6 IM (14:50)
[2017-08-20] MEDS ORDERED: METH125I2 IM (14:50)
[2017-08-20] MEDS ORDERED: LIPI20TA PO (14:52)
[2017-08-20] MEDS ORDERED: CILO100T PO (14:52)
[2017-08-20] MEDS ORDERED: NEUR300C PO (14:52)
[2017-08-20] MEDS ORDERED: LISI-515 PO (14:52)
== END 2017-08-12 16:52 | disposition home or self-care (01) ==
LOC: NEPC 18:16 → NEDA 22:33 → NEPFCDU 08-11 00:12
PROVIDERS: ADMIT Internal Medicine; ATTEND Internal Medicine
DX: M25.552 Pain in left hip (principal); M54.16 Radiculopathy, lumbar region; R10.32 Left lower quadrant pain; I10 Essential (primary) hypertension; E86.0 Dehydration; I73.9 Peripheral vascular disease, unspecified; B19.20 Unspecified viral hepatitis C without hepatic coma; F17.200 Nicotine dependence, unspecified, uncomplicated; R20.0 Anesthesia of skin; Z23 Encounter for immunization
CPT/HCPCS: 72131; 73502; 74176; 74177; 76830; 76856; 80053; 81001; 83605; 83690; 85025; 85610; 85730; 90471; 90472; 90686; 90732; 96361; 96374; 96375; 96376; 97116; 97162; 99285; G0378; G8987; G8988; J1170; J1885; J2405; J2930; J7030; J7512; P9612; Q9967; G0008; G0009; Q2038

== ENCOUNTER 2018-03-23 11:22 | Inpatient (IN) | payer SELFPAY ==
[2018-03-23] VITALS (7 sets, daily range): BP systolic 125–197; BP diastolic 70–91; PULSE 86–111; RESP 16–20; TEMP 97.8–98.8; O2SAT 94–100
[~2018-03-23] VITALS: Ht 167.6 cm; Wt 73.0 kg
[~2018-03-23 11:22] MED LIST changes: -BUSP15TA PO; -DIPH25CA PO; +LIDO1ADH4 T-DERMAL; +METH750T PO; +NEUR300C PO; +PANT20 PO; -ROBA750T PO; -TRAZ100T6 PO; +VIST25CA PO; +WALKER WHEELS/F1 MIS
[2018-03-23] MEDS ORDERED: SODIUM CHLORIDE 0.9% FLUSH 10 ML FLUSH IVF PRN (12:15)
[2018-03-23] MEDS ORDERED: NITROGLYCERIN 0.4 MG SL 25 TABS/BTL SL ONE (12:15)
[2018-03-23] MEDS ORDERED: SODIUM CHLORID 0.9% 500 ML INJ 500 ML IV ONE ×2 (12:15→14:45)
--- NOTE | 2018-03-23 12:23 | PD ---
HPI Chief Complaint: Chest Pain Time Seen by Provider: 11:52 Travel History International Travel<30 days: No Contact w/Intl Traveler<30days: No Traveled to known affect area: No History of Present Illness HPI 57-year-old female somewhat tangential historian with a history of anxiety, depression, bipolar, hypertension, peripheral vascular disease, hepatitis C presents emergency department evaluation of chest pain that has been intermittent for the last several days. Patient states that she has been feeling her heart racing and is associated with left midsternal chest pain. The pain radiates to the left arm. She has associated dizziness and nausea. Says she has somewhat shortness of breath but denies any significant work of breathing. Says her says that her symptoms seem to improve with rest and exacerbated with standing up. Says that she has been feeling lethargic and dizzy so she decided to come in today for evaluation. EVAC states they gave her aspirin and nitro 2 with some relief of her pain. Says initially her pain was 8/10 now it is 5-6/10. 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 Her last stress was in 2011. In addition to the mention medical history, she has a history of hyperlipidemia and does smoke tobacco for several years. Says she does have a family history of heart disease but is unable to specify. PFSH Past Medical History Hx Anticoagulant Therapy: No Autoimmune Disease: No Blood Disorders: No Bipolar Disorder: Yes Anxiety: Yes Depression: Yes Heart Rhythm Problems: No Cancer: No Cardiac Catheterization: No Cardiovascular Problems: Yes (HTN ) High Cholesterol: Yes Chemotherapy: No Chest Pain: No Congestive Heart Failure: No Cerebrovascular Accident: No Diabetes: No Diminished Hearing: No Endocrine: No Genitourinary: No Headaches: Yes Hepatitis: Yes (hep c) Hypertension: Yes Immune Disorder: No Musculoskeletal: Yes Neurologic: No Psychiatric: Yes Reproductive: No Respiratory: No Myocardial Infarction: No Menopausal: Yes : 2 Para: 2 Miscarriage: 0 : 0 Ovarian Cysts: Yes (LEFT CYST REMMOVED) Past Surgical History Abdominal Surgery: No Appendectomy: Yes Section: Yes Coronary Artery Bypass Graft: No Gynecologic Surgery: Yes (C SECTION) Hysterectomy: No Pacemaker: No Tonsillectomy: Yes Other Surgery: Yes (APPENDIX, CSECTION, SKIN GRAFTS, SAIGE IN RIGHT LEG, PIN IN LEFT ANKLE) Social History Alcohol Use: No Tobacco Use: Yes Substance Use: No Allergies-Medications (Allergen,Severity, Reaction): Coded Allergies: morphine (Unverified Allergy, Severe, Respiratory Failure, 08/20/17) Reported Meds & Prescriptions Reported Meds & Active Scripts Active Methocarbamol 750 Mg Tab 750 Mg PO TID Neurontin (Gabapentin) 300 Mg Cap 300 Mg PO TID Cilostazol 100 Mg Tab 100 Mg PO BID Lipitor (Atorvastatin Calcium) 20 Mg Tab 20 Mg PO HS Lisinopril 20 Mg Tab 20 Mg PO DAILY Lidoderm (Lidocaine) 5 % Adh..patch 1 Patch T-DERMAL DAILY Apply to painful area on the back Reported Vistaril (Hydroxyzine Pamoate) 25 Mg Cap 25 Mg PO QID PRN Sertraline (Sertraline HCl) 100 Mg Tab 100 Mg PO DAILY Review of Systems Except as stated in HPI: all other systems reviewed are Neg Physical Exam Narrative GENERAL: WD, WN SKIN: Focused skin assessment warm/dry. HEAD: Atraumatic. Normocephalic. EYES: Pupils equal and round. No scleral icterus. No injection or drainage. ENT: No nasal bleeding or discharge. Mucous membranes pink and moist. NECK: Trachea midline. No JVD. No lymphadenopathy CARDIOVASCULAR: Tachycardic rate and rhythm. No murmur appreciated. RESPIRATORY: No accessory muscle use. Clear to auscultation. Breath sounds equal bilaterally. GASTROINTESTINAL: Abdomen soft, nondistended. Mild tenderness palpation suprapubic region without masses no CVA tenderness MUSCULOSKELETAL: No obvious deformities. No clubbing. No cyanosis. No edema. Homans sign negative NEUROLOGICAL: Awake and alert. No obvious cranial nerve deficits. Motor grossly within normal limits. Normal speech. PSYCHIATRIC: Appropriate mood and affect; insight and judgment normal. Data Data Last Documented VS Vital Signs Date Time Temp Pulse Resp B/P (MAP) Pulse Ox O2 Delivery O2 Flow Rate FiO2 03/23/18 14:47 86 18 197/91 (126) 100 Room Air 03/23/18 11:30 97.8 Orders Orders Electrocardiogram (03/23/18 12:06) Ckmb (Isoenzyme) Profile (03/23/18 12:06) Complete Blood Count With Diff (03/23/18 12:06) Comprehensive Metabolic Panel (03/23/18 12:06) Magnesium (Mg) (03/23/18 12:06) Prothrombin Time / Inr (Pt) (03/23/18 12:06) Act Partial Throm Time (Ptt) (03/23/18 12:06) Troponin I (03/23/18 12:06) Ecg Monitoring (03/23/18 12:06) Bilateral Bp Monitoring (03/23/18 12:06) Iv Access Insert/Monitor (03/23/18 12:06) Oximetry (03/23/18 12:06) Oxygen Administration (03/23/18 12:06) Sodium Chloride 0.9% Flush (Ns Flush) (03/23/18 12:15) Nitroglycerin Sl (Nitrostat Sl) (03/23/18 12:15) Sodium Chlorid 0.9% 500 Ml Inj (Ns 500 M (03/23/18 12:15) Chest, Pa & Lat (03/23/18 12:06) Urinalysis - C+S If Indicated (03/23/18 12:28) Urine Culture (03/23/18 13:56) Sulfamet-Trimeth Ds 800-160 Mg (Bactrim (03/23/18 14:30) Nitroglycerin 2% Oint (Nitroglycerin 2% (03/23/18 14:45) Sodium Chlorid 0.9% 500 Ml Inj (Ns 500 M (03/23/18 14:45) Activity Bed Rest With Brp (03/23/18 14:40) Vital Signs (Adult) Q4H (03/23/18 14:40) Cardiac Rhythm .As Directed (03/23/18 14:40) Notify Dr: Other .PRN (03/23/18 14:40) Notify Dr. Parameters (03/23/18 14:40) Resp Oxygen Nasal Cannula (03/23/18 ) Diet Heart Healthy (03/23/18 Dinner) Ckmb (Isoenzyme) Profile (03/23/18 15:30) Ckmb (Isoenzyme) Profile (03/23/18 18:30) Troponin I (03/23/18 15:30) Troponin I (03/23/18 18:30) Electrocardiogram (03/23/18 15:30) Electrocardiogram (03/23/18 18:30) ^ Obtain (03/23/18 14:40) Ondansetron Inj (Zofran Inj) (03/23/18 14:45) Travel Service Consultant / Telemetry [id number] (03/23/18 14:40) Admit Order (Ed Use Only) (03/23/18 14:40) Labs Laboratory Tests Test 03/23/18 12:30 03/23/18 13:56 White Blood Count 11.3 TH/MM3 Red Blood Count 4.97 MIL/MM3 Hemoglobin 14.8 GM/DL Hematocrit 44.5 % Mean Corpuscular Volume 89.6 FL Mean Corpuscular Hemoglobin 29.8 PG Mean Corpuscular Hemoglobin Concent 33.3 % Red Cell Distribution Width 13.7 % Platelet Count 203 TH/MM3 Mean Platelet Volume 9.5 FL Neutrophils (%) (Auto) 78.0 % Lymphocytes (%) (Auto) 16.0 % Monocytes (%) (Auto) 5.0 % Eosinophils (%) (Auto) 0.4 % Basophils (%) (Auto) 0.6 % Neutrophils # (Auto) 8.8 TH/MM3 Lymphocytes # (Auto) 1.8 TH/MM3 Monocytes # (Auto) 0.6 TH/MM3 Eosinophils # (Auto) 0.0 TH/MM3 Basophils # (Auto) 0.1 TH/MM3 CBC Comment DIFF FINAL Differential Comment Prothrombin Time 10.0 SEC Prothromb Time International Ratio 1.0 RATIO Activated Partial Thromboplast Time 22.4 SEC Blood Urea Nitrogen 11 MG/DL Creatinine 1.08 MG/DL Random Glucose 97 MG/DL Total Protein 8.0 GM/DL Albumin 4.1 GM/DL Calcium Level 9.1 MG/DL Magnesium Level 2.3 MG/DL Alkaline Phosphatase 120 U/L Aspartate Amino Transf (AST/SGOT) 26 U/L Alanine Aminotransferase (ALT/SGPT) 31 U/L Total Bilirubin 0.4 MG/DL Sodium Level 141 MEQ/L Potassium Level 4.1 MEQ/L Chloride Level 108 MEQ/L Carbon Dioxide Level 25.7 MEQ/L Anion Gap 7 MEQ/L Estimat Glomerular Filtration Rate 52 ML/MIN Total Creatine Kinase 40 U/L Troponin I LESS THAN 0.02 NG/ML Urine Color LIGHT-YELLOW Urine Turbidity CLEAR Urine pH 7.0 Urine Specific [place] 1.006 Urine Protein NEG mg/dL Urine Glucose (UA) NEG mg/dL Urine Ketones NEG mg/dL Urine Occult Blood NEG Urine Nitrite NEG Urine Bilirubin NEG Urine Urobilinogen LESS THAN 2.0 MG/DL Urine Leukocyte Esterase LARGE Urine RBC 7 /hpf Urine WBC 7 /hpf Urine Squamous Epithelial Cells 3 /hpf Urine Bacteria MOD /hpf Microscopic Urinalysis Comment CULTURE INDICATED MDM Medical Decision Making Medical Screen Exam Complete: Yes Emergency Medical Condition: Yes Differential Diagnosis ACS, angina, anxiety, pneumonia, UTI, malingering Narrative Course 57-year-old female presents emergency room for evaluation of chest pain and heart palpitations have been present intermittently for several days. Vital signs heart rate 100, blood pressure 125/82, SaO2 97% on room air. Physical exam findings demonstrate 57-year-old female, anxious in no acute distress. No tenderness palpation of the chest wall. Upon arrival, patient received nitroglycerin 0.4 mg sublingual for 5/10 chest pain. If the patient received aspirin and 2 nitros prior to arrival today. Labs are significant for slight leukocytosis at 11.3, cardiac enzymes negative, urinalysis suggestive of urinary tract infection in combination with patient's symptoms. Bactrim DS administered for urinary tract infection. Nitropaste administered. It appears that her last stress test was December 2011 and it was noted that her exercise tolerance was diminished for her age. In addition, at that time she had resting ST changes which decreased the value of the stress test. Again she has a history of hyperlipidemia, hypertension, tobacco use, strong family history of heart disease. Patient will be admitted to the chest pain center she does have risk factors. Diagnosis Primary Impression: UTI (urinary tract infection) Qualified Codes: N30.00 - Acute cystitis without hematuria Additional Impression: Angina of effort Admitting Information Admitting Physician Requests: Observation Condition: Stable Cristy Lewis Mar 23, 2018 12:23
[2018-03-23 12:39] LABS: AUTOMATED NEUTROPHIL # 8.8 TH/MM3 (1.8-7.7); BASOPHIL # 0.1 TH/MM3 (0-0.2); BASOPHIL % 0.6 % (0.0-2.0); EOSINOPHIL % 0.4 % (0.0-4.0); HEMATOCRIT 44.5 % (35.0-46.0); HEMOGLOBIN 14.8 GM/DL (11.6-15.3); LYMPHOCYTE # 1.8 TH/MM3 (1.0-4.8); MEAN CELL VOLUME 89.6 FL (80.0-100.0); MEAN CORPUSCULAR HEMOGLOBIN 29.8 PG (27.0-34.0); MEAN CORPUSCULAR HGB CONC 33.3 % (32.0-36.0); MEAN PLATELET VOLUME 9.5 FL (7.0-11.0); MONOCYTE # 0.6 TH/MM3 (0-0.9); PLATELET COUNT 203 TH/MM3 (150-450); RED BLOOD COUNT 4.97 MIL/MM3 (4.00-5.30); RED CELL DISTRIBUTION WIDTH 13.7 % (11.6-17.2); WHITE BLOOD COUNT 11.3 TH/MM3 (4.0-11.0)
--- NOTE | 2018-03-23 12:42 | RADRPT ---
EXAM DATE/TIME: 03/23/2018 12:34 [facility] COMPARISON: No previous studies available for comparison. INDICATIONS : Chest pain and shortness of breath. Vomiting. MEDICAL HISTORY : None. SURGICAL HISTORY : None. ENCOUNTER: Initial ACUITY: 2 weeks PAIN SCORE: 9/10 LOCATION: Bilateral chest FINDINGS: PA and lateral views of the chest demonstrate the lungs to be symmetrically aerated without evidence of mass, infiltrate or effusion. The cardiomediastinal contours are unremarkable. Osseous structure s are intact. CONCLUSION: Normal examination. Rohit Matute MD on March 23, 2018 at 12:39 Board Certified Radiologist. This report was verified electronically.
[2018-03-23 13:06] LABS: ALBUMIN 4.1 GM/DL (3.4-5.0); ALT (GPT) 31 U/L (10-53); AST (GOT) 26 U/L (15-37); BICARBONATE 25.7 MEQ/L (21.0-32.0); BLOOD UREA NITROGEN 11 MG/DL (7-18); CALCIUM 9.1 MG/DL (8.5-10.1); CHLORIDE 108 MEQ/L (98-107); CREATININE 1.08 MG/DL (0.50-1.00); GLOMERULAR FILTRATION RATE 52 ML/MIN (>89); GLUCOSE,RANDOM 97 MG/DL (74-106); MAGNESIUM 2.3 MG/DL (1.5-2.5); SODIUM (NA) 141 MEQ/L (136-145)
[2018-03-23 13:10] LABS: ALKALINE PHOSPHATASE 120 U/L (45-117); TOTAL BILIRUBIN ADULT 0.4 MG/DL (0.2-1.0); TROPONIN I LESS THAN 0.02 NG/ML (0.02-0.05)
--- NOTE | 2018-03-23 14:01 | EKG ---
Date Performed: 03/23/2018 Time Performed: 11:42:34 PTAGE: 57 years EKG: SINUS TACHYCARDIA INTRAVENTRICULAR CONDUCTION DELAY NON-SPECIFIC ST/T WAVE CHANGES ABNORMAL ECG Compared to PREVIOUS TRACING , rate has increased to tachycardia DOCTOR: Royer Brizuela Interpretating Date/Time 03/23/2018 13:59:45
[2018-03-23 14:09] LABS: BACTERIA, URINE MOD /hpf; BILIRUBIN, URINE NEG (NEG); BLOOD, URINE NEG (NEG); GLUCOSE,URINE NEG (NEG); KETONE, URINE NEG (NEG); NITRITE,URINE NEG (NEG); SQUAMOUS EPITHELIAL CELL URINE 3 /hpf (0-5); URINE COLOR LIGHT-YELLOW (YELLW/STRAW); URINE LEUKOCYTE ESTERASE LARGE (NEG)
[2018-03-23] MEDS ORDERED: SULFAMETHOXAZOLE-TRIMETHOPRIM DS 800-160 MG TAB PO ONE (14:30)
[2018-03-23] MEDS ORDERED: ONDANSETRON HCL 4 MG/2 ML VIAL IV PUSH PRN ×2 (14:45→15:30)
[2018-03-23] MEDS ORDERED: NITROGLYCERIN 2% OINT 1 GM PACKET TOPICAL ONE (14:45)
[2018-03-23] MEDS ORDERED: NITROGLYCERIN 0.4 MG SL 25 TABS/BTL SL PRN (15:30)
[2018-03-23] MEDS ORDERED: ACETAMINOPHEN 500 MG CPLT PO PRN (15:30)
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
[2018-03-23 16:37] LABS: TROPONIN I 0.04 NG/ML (0.02-0.05)
[2018-03-23] MEDS ORDERED: hydrOXYzine PAMOATE 25 MG CAP PO PRN (18:45)
[2018-03-23 19:18] LABS: TROPONIN I 0.03 NG/ML (0.02-0.05)
[2018-03-23] MEDS ORDERED: PILL SPLITTER OTHER PRN (20:00)
[2018-03-23] MEDS ORDERED: ATORVASTATIN 20 MG TAB PO SCH (21:00)
[2018-03-23] MEDS: CILOSTAZOL 100 MG TAB PO SCH (21:55)
[2018-03-24] VITALS (22 sets, daily range): BP systolic 95–148; BP diastolic 55–88; PULSE 70–166; RESP 15–19; TEMP 97.6–98.9; O2SAT 95–98
--- NOTE | 2018-03-24 07:25 | PD.CARD.PN ---
Subjective Subjective Remarks No complaints overnight. Denies any dizziness or chest discomfort at this time. Reports "slight palpation" currently. Slept well overnight. Objective Medications Current Medications Medications (Trade) Dose Ordered Sig/Renae Route Start Time Stop Time Status Last Admin (NS Flush) 2 ml UNSCH PRN IVF 03/23/18 12:15 (Tylenol) 500 mg Q4H PRN PO 03/23/18 15:30 (Zofran Inj) 4 mg Q6H PRN IV PUSH 03/23/18 15:30 (Nitrostat Sl) 0.4 mg Q5M PRN SL 03/23/18 15:30 03/24/18 07:09 (Aspirin) 325 mg DAILY PO 03/24/18 09:00 (Lipitor) 20 mg HS PO 03/23/18 21:00 03/23/18 21:55 (Pletal) 100 mg BID PO 03/23/18 21:00 03/23/18 21:55 (Neurontin) 300 mg TID PO 03/24/18 09:00 (Vistaril) 25 mg QID PRN PO 03/23/18 18:45 (Prinivil) 20 mg DAILY PO 03/24/18 09:00 (Robaxin) 750 mg TID PO 03/24/18 09:00 (Zoloft) 100 mg DAILY PO 03/24/18 09:00 (Pill Splitter) 1 ea UNSCH PRN OTHER 03/23/18 20:00 Vital Signs / I&O Vital Signs Date Time Temp Pulse Resp B/P (MAP) Pulse Ox O2 Delivery O2 Flow Rate FiO2 03/24/18 06:27 98.0 158 15 122/84 (97) 03/24/18 04:05 98.7 79 16 141/66 (91) 95 03/24/18 04:00 84 03/24/18 00:45 98.9 88 16 107/55 (72) 95 03/24/18 00:00 90 03/23/18 20:00 102 03/23/18 19:40 98.8 93 16 131/70 (90) 94 03/23/18 17:14 102 03/23/18 17:04 98.3 96 20 162/79 (106) 97 03/23/18 17:03 03/23/18 14:47 86 18 197/91 (126) 100 Room Air 4/29/18 12:15 103 20 125/82 (96) 96 Room Air 03/23/18 12:15 97 Room Air 03/23/18 12:15 100 18 95 Room Air 03/23/18 12:15 106 18 97 Room Air 03/23/18 11:30 97.8 111 18 125/82 (96) 97 Physical Exam GENERAL: Alert WN, WD, NAD, pleasant, female who appears older than stated age. Resting, only upon entering the room. Easily awakened. HEAD: NC, AT CV: Regular tachycardiac rate, without murmur, rub, gallop. RESP: Diminished throughout bilateral, no crackles or rhonchi, symmetrical chest rise, nonlabored, able to speak in full sentences ABD: Soft, NT, ND, no masses, positive bowel tones MS: Normal tone x4 extremities NEURO: CN II through CN XII grossly intact PSYCH: A+O x3, pleasant affect, appropriate speech, mood, insight and judgment SKIN: Normal turgor, normal texture Laboratory Laboratory Tests Test 03/23/18 12:30 03/23/18 13:56 03/23/18 15:38 03/23/18 18:30 White Blood Count 11.3 TH/MM3 Red Blood Count 4.97 MIL/MM3 Hemoglobin 14.8 GM/DL Hematocrit 44.5 % Mean Corpuscular Volume 89.6 FL Mean Corpuscular Hemoglobin 29.8 PG Mean Corpuscular Hemoglobin Concent 33.3 % Red Cell Distribution Width 13.7 % Platelet Count 203 TH/MM3 Mean Platelet Volume 9.5 FL Neutrophils (%) (Auto) 78.0 % Lymphocytes (%) (Auto) 16.0 % Monocytes (%) (Auto) 5.0 % Eosinophils (%) (Auto) 0.4 % Basophils (%) (Auto) 0.6 % Neutrophils # (Auto) 8.8 TH/MM3 Lymphocytes # (Auto) 1.8 TH/MM3 Monocytes # (Auto) 0.6 TH/MM3 Eosinophils # (Auto) 0.0 TH/MM3 Basophils # (Auto) 0.1 TH/MM3 CBC Comment DIFF FINAL Differential Comment Prothrombin Time 10.0 SEC Prothromb Time International Ratio 1.0 RATIO Activated Partial Thromboplast Time 22.4 SEC Blood Urea Nitrogen 11 MG/DL Creatinine 1.08 MG/DL Random Glucose 97 MG/DL Total Protein 8.0 GM/DL Albumin 4.1 GM/DL Calcium Level 9.1 MG/DL Magnesium Level 2.3 MG/DL Alkaline Phosphatase 120 U/L Aspartate Amino Transf (AST/SGOT) 26 U/L Alanine Aminotransferase (ALT/SGPT) 31 U/L Total Bilirubin 0.4 MG/DL Sodium Level 141 MEQ/L Potassium Level 4.1 MEQ/L Chloride Level 108 MEQ/L Carbon Dioxide Level 25.7 MEQ/L Anion Gap 7 MEQ/L Estimat Glomerular Filtration Rate 52 ML/MIN Total Creatine Kinase 40 U/L 30 U/L 30 U/L Troponin I LESS THAN 0.02 NG/ML 0.04 NG/ML 0.03 NG/ML Urine Color LIGHT-YELLOW Urine Turbidity CLEAR Urine pH 7.0 Urine Specific [place] 1.006 Urine Protein NEG mg/dL Urine Glucose (UA) NEG mg/dL Urine Ketones NEG mg/dL Urine Occult Blood NEG Urine Nitrite NEG Urine Bilirubin NEG Urine Urobilinogen LESS THAN 2.0 MG/DL Urine Leukocyte Esterase LARGE Urine RBC 7 /hpf Urine WBC 7 /hpf Urine Squamous Epithelial Cells 3 /hpf Urine Bacteria MOD /hpf Microscopic Urinalysis Comment CULTURE INDICATED Imaging Last 24 hours Impressions Chest X-Ray 03/23/18 1206 Signed Impressions: Service Date/Time: Friday, March 23, 2018 12:34 - CONCLUSION: Normal examination. Rohit Matute MD Assessment and Plan Assessment and Plan Notified by RN patient's heart rate between 150-170s, EKG obtained suggests SVT rate of 153. Spoke with Dr. John. Plan would be to give IVP adenosine or Cardizem, however due to units limits of pushing antiarrhythmics will transfer to inpatient cardiac unit. Spoke with hospitalist Dr. Abraham, who agrees to resume care of patient. Velma Bennett Mar 24, 2018 07:25
[2018-03-24] MEDS ORDERED: ADENOSINE IV SOLN 3 MG/ML 2 ML VIAL IV PUSH ONE (08:00)
[2018-03-24] MEDS: SERTRALINE HCL 100 MG TAB PO SCH (09:48)
[2018-03-24] MEDS: CILOSTAZOL 100 MG TAB PO SCH ×2 (09:48→20:30)
[2018-03-24] MEDS: LISINOPRIL 20 MG TAB PO SCH (09:49)
[2018-03-24] MEDS: ASPIRIN 325 MG TAB PO SCH (09:49)
[2018-03-24] MEDS: GABAPENTIN 300 MG CAP PO SCH ×3 (09:49→17:21)
[2018-03-24] MEDS: METHOCARBAMOL 500 MG TAB PO SCH ×3 (10:44→17:21)
[2018-03-24] MEDS ORDERED: SODIUM CHLOR 0.9% 1000 ML INJ 1,000 ML IV SCH (13:00)
[2018-03-24] MEDS: cefTRIAXone INJ 1,000 MG in SODIUM CHLORIDE 0.9% INJ 100 ML IV SCH (14:00)
--- NOTE | 2018-03-24 15:18 | HHI.PR ---
Addendum to Inpatient Note Addendum Reason: Additional Documentation Additional Information The patient was resting comfortably. She still complained of some chest pressure. She wanted to know if she could eat something. She wanted to know if she could ambulate to the bathroom instead of using the bedpan. She mentioned she also has some symptoms of a UTI. Discussed with nursing. IV ceftriaxone has been started. Follow urine culture. Cardiology consult is pending. Will follow up recommendations. TSH is pending. Sam Donaldson DO Mar 24, 2018 15:18
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
--- NOTE | 2018-03-24 17:29 | EKG ---
Date Performed: 03/24/2018 Time Performed: 06:32:11 PTAGE: 57 years EKG: SUPRAVENTRICULAR TACHYCARDIA INFERIOR MYOCARDIAL INFARCTION ABNORMAL ECG INTERPRETATION BAS ED ON A DEFAULT AGE OF 40 YEARS NO PREVIOUS TRACING DOCTOR: Charan John Interpretating Date/Time 03/24/2018 17:28:56
--- NOTE | 2018-03-24 17:37 | EKG ---
Date Performed: 03/23/2018 Time Performed: 18:33:53 PTAGE: 57 years EKG: Sinus rhythm WITH SHORT ID INTERVAL NONSPECIFIC ST & T-WAVE ABNORMALITY ABNORMAL ECG PREVIOUS TRACING : 03/23/2018 16.29 Compared to previous tracing,pr. interval is a little short er, T wave changes are more prominant. DOCTOR: Charan John Interpretating Date/Time 03/25/2018 06:54:13
--- NOTE | 2018-03-24 17:38 | EKG ---
Date Performed: 03/23/2018 Time Performed: 16:29:00 PTAGE: 57 years EKG: SINUS TACHYCARDIA WITH SHORT AR INTERVAL NONSPECIFIC ST & T-WAVE ABNORMALITY ABNORMAL RHYTH M ECG PREVIOUS TRACING : 03/23/2018 11.42 Since previous tracing, no significant change noted DOCTOR: Charan John Interpretating Date/Time 03/24/2018 17:36:48
[2018-03-24] MEDS: METOPROLOL TARTRATE 25 MG TAB PO SCH (20:30)
--- NOTE | 2018-03-24 20:46 | EKG ---
Date Performed: 03/24/2018 Time Performed: 08:07:20 PTAGE: 57 years EKG: SINUS TACHYCARDIA WITH SHORT MO INTERVAL WITH OCCASIONAL VENTRICULAR PREMATURE COMPLEXES NO NSPECIFIC T-WAVE ABNORMALITY ABNORMAL RHYTHM ECG NO PREVIOUS TRACING DOCTOR: Marky Saeed Interpretating Date/Time 03/24/2018 20:45:10
[2018-03-24] MEDS ORDERED: ATORVASTATIN 40 MG TAB PO SCH (21:00)
[2018-03-25] VITALS (18 sets, daily range): BP systolic 106–146; BP diastolic 69–82; PULSE 59–95; RESP 17–18; TEMP 98–98.6; O2SAT 94–97
[2018-03-25 06:54] LABS: BICARBONATE 25.4 MEQ/L (21.0-32.0); CALCIUM 9.2 MG/DL (8.5-10.1); CREATININE 1.03 MG/DL (0.50-1.00)
[2018-03-25 07:06] LABS: HEMATOCRIT 40.1 % (35.0-46.0); HEMOGLOBIN 13.7 GM/DL (11.6-15.3); MEAN CORPUSCULAR HEMOGLOBIN 30.4 PG (27.0-34.0); MEAN CORPUSCULAR HGB CONC 34.2 % (32.0-36.0); MEAN PLATELET VOLUME 10.1 FL (7.0-11.0); PLATELET COUNT 180 TH/MM3 (150-450); RED BLOOD COUNT 4.51 MIL/MM3 (4.00-5.30); RED CELL DISTRIBUTION WIDTH 13.7 % (11.6-17.2); WHITE BLOOD COUNT 5.7 TH/MM3 (4.0-11.0)
[2018-03-25] MEDS: METHOCARBAMOL 500 MG TAB PO SCH ×3 (08:59→17:58)
[2018-03-25] MEDS: SERTRALINE HCL 100 MG TAB PO SCH (08:59)
[2018-03-25] MEDS: GABAPENTIN 300 MG CAP PO SCH ×3 (08:59→17:57)
[2018-03-25] MEDS: LISINOPRIL 20 MG TAB PO SCH (08:59)
[2018-03-25] MEDS: METOPROLOL TARTRATE 25 MG TAB PO SCH (08:59)
[2018-03-25] MEDS: ASPIRIN 325 MG TAB PO SCH (08:59)
[2018-03-25] MEDS: CILOSTAZOL 100 MG TAB PO SCH (08:59)
[2018-03-25] MEDS ORDERED: REGADENOSON INJ 0.4 MG/5 ML SYR ONE (11:19)
--- NOTE | 2018-03-25 13:16 | RADRPT ---
EXAM DATE/TIME: 03/25/2018 11:07 [facility] COMPARISON: No previous studies available for comparison. INDICATIONS : Chest pain. Angina. DOSE: 26.8 mCi Tc99m Myoview at stress. 8.6 mCi Tc99m Myoview at rest. 0.4 mg Lexiscan STRESS SYMPTOMS: None. EJECTION FRACTION: 43% MEDICAL HISTORY : Hypertension. SURGICAL HISTORY : section. Adin in right leg. ENCOUNTER: Initial ACUITY: 1 day PAIN SCALE: 2/10 LOCATION: Bilateral chest TECHNIQUE: The patient underwent pharmacologic stress with infusion of prescribed dose. Continuous ECG tracing was monitored during stress. Gated SPECT imaging was performed after stress and conventional SPECT i maging was performed at rest. The examination was performed on a SPECT/CT scanner, both attenuation and non-corrected datasets were reviewed. FINDINGS: DISTRIBUTION: The maximum perfused segment at stress is in the anterior wall. PERFUSION STUDY: The pattern of perfusion at stress is within normal limits, with regional variations of perfusion wit hin 25%. No evidence of redistribution there is decreased activity in both the stress and rest image s in the apex probably representing apical thinning. GATED STUDY: There is intact wall motion and thickening without hypokinetic or dyskinetic segments. CONCLUSION: 1. No evidence of stress-induced ischemia. 2. Globally depressed ejection fraction of 43%. RISK CATEGORY: Intermediate (1-3% Annual Mortality Rate) Adams Bloom MD on March 25, 2018 at 13:13 Board Certified Radiologist. This report was verified electronically.
[2018-03-25] MEDS: cefTRIAXone INJ 1,000 MG in SODIUM CHLORIDE 0.9% INJ 100 ML IV SCH (13:18)
--- NOTE | 2018-03-25 13:41 | HHI.PR ---
Subjective Remarks Patient feeling tired for stress test. Denies any chest pain, shortness of breath, nausea or vomiting. She states that she is "starving " Objective Vitals Vital Signs Date Time Temp Pulse Resp B/P (MAP) Pulse Ox O2 Delivery O2 Flow Rate FiO2 03/25/18 13:05 64 03/25/18 12:55 98.6 67 18 138/76 (96) 97 03/25/18 10:12 61 03/25/18 09:52 59 03/25/18 08:14 61 03/25/18 07:41 73 03/25/18 07:41 98.4 64 18 146/82 (103) 94 03/25/18 06:33 95 03/25/18 05:29 62 03/25/18 04:00 70 03/25/18 03:26 98.0 82 17 118/72 (87) 96 03/25/18 03:00 71 03/25/18 02:00 76 03/25/18 01:40 81 03/25/18 00:00 62 03/24/18 23:12 97.9 70 18 117/75 (89) 98 03/24/18 23:00 71 03/24/18 22:01 70 03/24/18 21:00 90 03/24/18 20:17 98.1 96 19 144/76 (98) 97 03/24/18 20:00 88 03/24/18 19:37 97 21 03/24/18 19:00 93 03/24/18 18:15 87 03/24/18 17:11 83 03/24/18 15:17 92 03/24/18 15:16 97.8 83 18 148/86 (106) 98 I/O 03/24/18 03/24/18 03/24/18 03/25/18 03/25/18 03/25/18 06:59 14:59 22:59 06:59 14:59 22:59 Intake Total 669 ml 832 ml Balance 669 ml 832 ml Intake Oral 480 ml 832 ml IV Total 189 ml # Voids 4 4 # Bowel Movements 1 Result Diagram: 03/25/18 0506 03/25/18 0506 Imaging Last Impressions Myocardial Perfusion Scan Nuc Med 03/25/18 0800 Signed Impressions: Service Date/Time: Sunday, March 25, 2018 11:07 - CONCLUSION: 1. No evidence of stress-induced ischemia. 2. Globally depressed ejection fraction of 43%%. RISK CATEGORY: Intermediate (1-3%% Annual Mortality Rate) Adams Bloom MD Chest X-Ray 03/23/18 1206 Signed Impressions: Service Date/Time: Friday, March 23, 2018 12:34 - CONCLUSION: Normal examination. Rohit Matute MD Objective Remarks GENERAL: Laying in bed. CV: Regular rate and rhythm no murmurs RESP: No wheezes ABD: Soft, NT, ND, no masses, positive bowel tones MS: Normal tone x4 extremities A/P Assessment and Plan #1 Chest pain-patient initially admitted under the chest pain center. Then patient had a run of SVTs. Patient was then transferred to the inpatient cardiac unit under the hospitalist service. CE neg x 3. Cardiology was consulted and following. Patient underwent a stress test today which showed intermediate risk. Discussed with victorina Gonzalez to give a diet to patient. Awaiting final recommendations. #2UTI: Urine culture growing Citrobacter Freundii. Pt started on IV rocephin and can be switched to macrobid upon d/c #3 History of hypertension-continue lisinopril #4 History of bipolar disorder-continue sertraline and visteral #5 History of hyperlipidemia-continue atorvastatin #6 History of PVD-continue cilostazol #7 History of hypothyroidism-continue levothyroxine Heart healthy diet. Discharge Planning awaiting final recs from cards. Nisha Sapp MD March 25, 2018 13:41
[2018-03-25] MEDS ORDERED: METO25TA3 PO (17:54)
[2018-03-25] MEDS ORDERED: ASA325 PO (17:54)
[2018-03-25] MEDS ORDERED: LISI-515 PO (17:54)
[2018-03-25] MEDS ORDERED: ATOR40TA16 PO (17:54)
--- NOTE | 2018-03-25 17:59 | PD.CARD.PN ---
Subjective Subjective Remarks No CP or SOB, no arrhythmias, feels much better Objective Medications Current Medications Medications (Trade) Dose Ordered Sig/Renae Route Start Time Stop Time Status Last Admin (NS Flush) 2 ml UNSCH PRN IVF 03/23/18 12:15 03/25/18 13:18 (Tylenol) 500 mg Q4H PRN PO 03/23/18 15:30 (Zofran Inj) 4 mg Q6H PRN IV PUSH 03/23/18 15:30 (Nitrostat Sl) 0.4 mg Q5M PRN SL 03/23/18 15:30 03/24/18 07:09 (Aspirin) 325 mg DAILY PO 03/24/18 09:00 03/25/18 08:59 (Pletal) 100 mg BID PO 03/23/18 21:00 03/25/18 08:59 (Neurontin) 300 mg TID PO 03/24/18 09:00 03/25/18 13:18 (Vistaril) 25 mg QID PRN PO 03/23/18 18:45 (Prinivil) 20 mg DAILY PO 03/24/18 09:00 03/25/18 08:59 (Robaxin) 750 mg TID PO 03/24/18 09:00 03/25/18 13:18 (Zoloft) 100 mg DAILY PO 03/24/18 09:00 03/25/18 08:59 (Pill Splitter) 1 ea UNSCH PRN OTHER 03/23/18 20:00 Ceftriaxone Sodium 1000 mg/ Sodium Chloride 100 ml @ 200 mls/hr Q24H IV 03/24/18 14:00 03/25/18 13:18 (Lipitor) 40 mg HS PO 03/24/18 21:00 03/24/18 20:30 (Lopressor) 25 mg Q12HR PO 03/24/18 21:00 03/25/18 08:59 Vital Signs / I&O Vital Signs Date Time Temp Pulse Resp B/P (MAP) Pulse Ox O2 Delivery O2 Flow Rate FiO2 03/25/18 16:15 72 03/25/18 16:13 98.0 81 18 106/69 (81) 97 03/25/18 13:05 64 03/25/18 12:55 98.6 67 18 138/76 (96) 97 03/25/18 10:12 61 03/25/18 09:52 59 03/25/18 08:14 61 03/25/18 07:41 73 03/25/18 07:41 98.4 64 18 146/82 (103) 94 03/25/18 06:33 95 03/25/18 05:29 62 03/25/18 04:00 70 03/25/18 03:26 98.0 82 17 118/72 (87) 96 03/25/18 03:00 71 03/25/18 02:00 76 03/25/18 01:40 81 03/25/18 00:00 62 03/24/18 23:12 97.9 70 18 117/75 (89) 98 03/24/18 23:00 71 03/24/18 22:01 70 03/24/18 21:00 90 03/24/18 20:17 98.1 96 19 144/76 (98) 97 03/24/18 20:00 88 03/24/18 19:37 97 21 03/24/18 19:00 93 03/24/18 18:15 87 I/O 03/24/18 03/24/18 03/24/18 03/25/18 03/25/18 03/25/18 07:00 15:00 23:00 07:00 15:00 23:00 Intake Total 669 ml 832 ml Balance 669 ml 832 ml Intake Oral 480 ml 832 ml IV Total 189 ml # Voids 4 4 # Bowel Movements 1 Physical Exam GENERAL: In NAD SKIN: Warm and dry. HEAD: Normocephalic. EYES: No scleral icterus. No injection or drainage. NECK: Supple, trachea midline. No JVD or lymphadenopathy. CARDIOVASCULAR: Regular rate and rhythm without murmurs, gallops, or rubs. RESPIRATORY: Breath sounds equal bilaterally. No accessory muscle use. GASTROINTESTINAL: Abdomen soft, non-tender, nondistended. MUSCULOSKELETAL: No cyanosis, or edema. Laboratory Laboratory Tests Test 03/25/18 05:06 White Blood Count 5.7 TH/MM3 Red Blood Count 4.51 MIL/MM3 Hemoglobin 13.7 GM/DL Hematocrit 40.1 % Mean Corpuscular Volume 89.0 FL Mean Corpuscular Hemoglobin 30.4 PG Mean Corpuscular Hemoglobin Concent 34.2 % Red Cell Distribution Width 13.7 % Platelet Count 180 TH/MM3 Mean Platelet Volume 10.1 FL Blood Urea Nitrogen 21 MG/DL Creatinine 1.03 MG/DL Random Glucose 101 MG/DL Calcium Level 9.2 MG/DL Sodium Level 142 MEQ/L Potassium Level 4.4 MEQ/L Chloride Level 109 MEQ/L Carbon Dioxide Level 25.4 MEQ/L Anion Gap 8 MEQ/L Estimat Glomerular Filtration Rate 55 ML/MIN Imaging Last 24 hours Impressions Myocardial Perfusion Scan Nuc Med 03/25/18 0800 Signed Impressions: Service Date/Time: Sunday, March 25, 2018 11:07 - CONCLUSION: 1. No evidence of stress-induced ischemia. 2. Globally depressed ejection fraction of 43%%. RISK CATEGORY: Intermediate (1-3%% Annual Mortality Rate) Adams Bloom MD Assessment and Plan Problem List: (1) SVT (supraventricular tachycardia) ICD Codes: I47.1 - Supraventricular tachycardia (2) Chest pain ICD Codes: R07.9 - Chest pain, unspecified (3) HTN (hypertension) ICD Codes: I10 - Essential (primary) hypertension Status: Chronic (4) Hyperlipidemia, mixed ICD Codes: E78.2 - Mixed hyperlipidemia Status: Chronic (5) PVD (peripheral vascular disease) ICD Codes: I73.9 - Peripheral vascular disease, unspecified (6) Tobacco abuse ICD Codes: Z72.0 - Tobacco use Status: Chronic (7) Bipolar disorder, mixed ICD Codes: F31.60 - Mixed bipolar disorder Status: Acute (8) Chronic hepatitis C virus infection ICD Codes: B18.2 - Chronic hepatitis C virus infection Status: Chronic Assessment and Plan No recurrent symptoms. Nuclear ST with no perfusion defects and EF 43%. Tele with no SVT on beta blade. Continue metoprolol and lisinopril. Pt strongly encouraged to quit smoking. DC home. F/u w PCP within 1 week. Eli Staples MD March 25, 2018 17:59
[2018-03-25] MEDS ORDERED: ASPI81TA23 PO (18:19)
== END 2018-03-25 18:00 | disposition home or self-care (01) | DRG 309 ==
LOC: NEPC 11:22 → NEDA 14:47 → NEPGCP 17:08 → OBSVTOIN 03-24 08:09 → HCIS 03-24 08:49
PROVIDERS: ADMIT Hospitalist; ATTEND Hospitalist
DX: I47.1 Supraventricular tachycardia (principal); N39.0 Urinary tract infection, site not specified; I10 Essential (primary) hypertension; F31.9 Bipolar disorder, unspecified; E03.9 Hypothyroidism, unspecified; B18.2 Chronic viral hepatitis C; I73.9 Peripheral vascular disease, unspecified; F17.200 Nicotine dependence, unspecified, uncomplicated; E78.5 Hyperlipidemia, unspecified; B96.89 Other specified bacterial agents as the cause of diseases classified elsewhere; Z86.718 Personal history of other venous thrombosis and embolism
CPT/HCPCS: 71046; 78452; 80048; 80053; 81001; 82550; 83735; 84443; 84484; 85025; 85027; 85610; 85730; 87077; 87086; 87186; 93005; 93017; A9502; J0153; J0696; J2785; J7030; J7040